=== PATIENT | male | born 1935 | race Caucasian/White ===

== ENCOUNTER 2019-07-19 11:49 | Inpatient (IN) | payer MEDICARE, BC, OTHER ==
[2019-07-19 13:17] LABS: #Eosinphils 0.1 thou/uL (0.0-0.7); #Lymphocytes 0.8 thou/uL (1.20-3.40); #Monocytes 0.7 thou/uL (0.11-0.59); #Neutrophils 3.4 thou/uL (1.40-6.50); %Basophils 0.5 % (0.0-1.0); %Eosinophils 2.6 % (0.0-10.0); %Lymphocytes 16.7 % (21.0-51.0); %Monocytes 13.4 % (0.0-10.0); %Neutrophils 66.8 % (42.0-75.0); Hemoglobin 12.2 g/dL (14.0-18.0); Mean Corpuscular HGB CONC 30.2 g/dL (32.0-36.0); Mean Corpuscular Hemoglobin 33.6 pg (27.0-31.0); Platelet Count 102 thou/uL (130-400); RBC Distribution Width 16.5 % (11.5-14.5); Red Blood Cell (RBC) Count 3.64 mill/uL (4.70-6.10)
[2019-07-19 13:37] LABS: ALT (SGPT) 29 U/L (8-55); AST (SGOT) 27 U/L (5-34); Albumin 3.2 g/dL (3.4-4.8); Alkaline Phosphatase 162 U/L (40-110); Anion Gap 16 mmol/L (10-20); BUN (Urea Nitrogen) 37 mg/dL (8.4-25.7); Bilirubin, Total 1.2 mg/dL (0.2-1.2); CK (CPK) 36 U/L (30-200); Calc. Creatinine Clearance 0 mL/min (70-130); Calcium 8.6 mg/dL (7.8-10.44); Carbon Dioxide 24 mmol/L (23-31); Chloride 106 mmol/L (98-107); Estimated GFR-MDRD 38; Globulin 2.7 g/dL (2.4-3.5); Glucose 98 mg/dL (83-110); Potassium 4.7 mmol/L (3.5-5.1); Protein, Total 5.9 g/dL (5.8-8.1); Sodium 141 mmol/L (136-145)
[2019-07-19 13:41] LABS: MDiff Complete? YES; Macrocytosis SLIGHT = 6-15 cells (100X) (0-5/hpf); Platelet Morphology Comment Appears Decreased
[2019-07-19 13:50] LABS: CKMB 2.2 ng/mL (0-6.6)
[2019-07-19] MEDS ORDERED: Nitroglycerin 2% Ointment 1 INCH/1 GM Packet ONE (14:21)
[2019-07-19] MEDS ORDERED: Furosemide 40 MG/4 ML VIAL ONE (14:21)
[2019-07-19] MEDS ORDERED: Aspirin Chewable 81 MG TAB ONE (14:21)
--- NOTE | 2019-07-19 15:10 | RAD ---
CHEST 1 VIEW: HISTORY: Low oxygen saturation. COMPARISON: Radiograph 06/24/2019. FINDINGS: Heart size is markedly enlarged. Moderate right and small left effusion. Moderate pulmonary edema. Multiple midline sternotomy wires. AICD/pacer is similar. Abnormal fullness of the right infrahilar soft tissues. IMPRESSION: 1. Mild decompensating congestive heart failure. 2. Mild fullness of the right infrahilar soft tissues. Nonemergent followup CT of the chest after d iuresis recommended. POS: HOME
--- NOTE | 2019-07-19 16:21 | HP ---
PRIMARY CARE PHYSICIAN: [facility]. REASON FOR ADMISSION: Sent from group home for hypoxic respiratory failure. HISTORY OF PRESENT ILLNESS: An 84-year-old male, who lives at group home, he has underlying CHF as well as seizure disorder, who presented from group home for hypoxic respiratory failure. The patient is a poor historian. The patient does not have any more clear about his diagnosis. As per report, the patient was found with oxygen saturation 60 to 70 on room air this morning and subsequently, paramedics was called. When paramedics reached at group home, he was saturating 80% on room air. The patient was started on oxygen and subsequently, his oxygen saturation improved to 91%. The patient was having increasing bilateral lower extremity edema. He did not have any chest pain or fever. The patient has significant physical deconditioning. Routine blood tests showed macrocytosis and thrombocytopenia as well as CKD stage 3 with creatinine 1.74, and troponin was indeterminate range with 0.031 and BNP was significantly elevated with more than 10,000. In the emergency room, the patient had a chest x-ray, which was also consistent with congestive heart failure, and the patient was given Lasix 80 mg IV push, nitroglycerin patch, and aspirin. As the patient was having hypoxia, respiratory failure, and the patient is from group home, and that is why from emergency room, COVID-19 test was sent. REVIEW OF SYSTEMS: All review of systems tried to review with the patient, but not reliable due to level of cognitive status. PAST MEDICAL HISTORY: Congestive heart failure, seizure disorder, coronary artery disease, and dyslipidemia. PAST SURGICAL HISTORY: CABG and AICD/pacemaker placement. PAST PSYCHIATRIC HISTORY: Reviewed and negative. SOCIAL HISTORY: The patient is from group home. No history of tobacco, alcohol, or illicit drug abuse. FAMILY HISTORY: Unable to obtain from the patient and not reliable due to cognitive status. ALLERGIES: NO KNOWN DRUG ALLERGIES. CURRENT HOME MEDICATIONS: The patient is on: 1. Amiodarone 200 mg daily. 2. Aspirin 81 mg daily. 3. Lasix 80 mg daily. 4. Potassium chloride 20 mEq p.o. daily. 5. Coreg 3.125 mg twice daily. 6. Keppra 500 mg twice daily. 7. Lipitor 40 mg p.o. at bedtime. EMERGENCY ROOM COURSE: The patient has received Lasix 80 mg, nitroglycerin patch, and aspirin 324 mg. PHYSICAL EXAMINATION: VITAL SIGNS: On arrival, blood pressure 156/93, pulse 61, respiratory rate 22, temperature 97.4, and saturations 91% on 3 L oxygen. Weight 90.7 kg. GENERAL: The patient is currently awake, arousable, follows simple commands, confused. No obvious acute distress. HEENT: Head; normocephalic and atraumatic. NECK: Supple. Elevated JVD noted. No thyromegaly. No carotid bruit. LUNGS: Air entry reduced at bases, bilateral basal rales noted, no end-expiratory wheezing. No accessory muscles of respiration in use. CARDIAC: S1 and S2 appear regular. Soft systolic murmur noted. No gallop. No rub. ABDOMEN: Soft, bowel sounds present, nontender, and nondistended. No organomegaly. No mass. EXTREMITIES: Upper extremity; edema noted. Bilateral upper extremity, +2. Lower extremity; edema noted, bilateral lower extremity +2. SKIN: The patient does have multiple areas of ecchymosis. NEUROLOGIC: Awake and alert. Moving all 4 limbs. No focal neurological deficit noted. PSYCHIATRIC: Awake and alert. Flat affect. SIGNIFICANT LABORATORY DATA: EKG showing pacemaker rhythm, QTc interval 530. Chest x-ray based on my review, findings suggestive of congestive heart failure, mild fullness of right infrahilar soft tissue. AICD in place. CBC; WBC 5.0, hemoglobin 12.2, MCV 111, and platelets 102. BMP; sodium 141, potassium 4.7, chloride 106, carbon dioxide 24, BUN 37, creatinine 1.74, glucose 98, and calcium 8.6. LFT; AST 27, ALT 29, alkaline phosphatase 162, and albumin 3.2. CK 36 and CK-MB 2.2. Troponin I of 0.031. BNP 10,308. ASSESSMENT: 1. Acute respiratory failure with hypoxia, likely due to congestive heart failure exacerbation. 2. Nlglt-[id number]-zojahky systolic congestive heart failure exacerbation. 3. Anasarca due to congestive heart failure exacerbation. 4. Macrocytic anemia and thrombocytopenia. 5. Chronic kidney disease, stage 3. 6. Demand ischemia of myocardium. 7. Dyslipidemia. 8. Seizure disorder. 9. Coronary artery disease with history of coronary artery bypass grafting. PLAN: 1. The patient will be admitted to telemetry floor. Oxygen will be continued to maintain saturations above 92%. We will continue the Lasix 40 mg IV b.i.d., fluid restriction 1200 mL per day. We will start Coreg 3.125 mg twice daily and lisinopril 2.5 mg p.o. daily. 2. Coronary artery disease with ischemic cardiomyopathy, we will continue the aspirin 81 mg p.o. daily, amiodarone 200 mg p.o. daily, and Lipitor 40 mg p.o. at bedtime. 3. Seizure disorder. We will continue Keppra 500 mg p.o. b.i.d. 4. Macrocytic anemia and thrombocytopenia. We will check folate and B12 level tomorrow morning. We will also check TSH tomorrow morning and continue folic acid and vitamin B12 therapy. 5. Rule out COVID-19 infection. The patient is at risk for COVID-19 infection and that is why, we will keep him in hospital and put him on contact precautions. 6. Demand ischemia of myocardium due to congestive heart failure exacerbation and hypoxia. Once COVID-19 test comes back negative, then we will discontinue isolation protocol. 7. CKD stage 3. We will monitor renal function and input and output chart and will replace electrolytes accordingly. 8. Physical deconditioning. The patient will need PT and OT when stable. 9. Deep venous thrombosis prophylaxis, SCD, we will avoid Lovenox because of low platelet count. 10. Gastrointestinal prophylaxis, Pepcid 20 mg p.o. daily. CODE STATUS: The patient will be kept as a full code. The patient does not have any obvious surrogate decision maker bedside at this point. DISPOSITION PLAN: Based on clinical course, the patient will go back to group home upon stabilization. Job ID: [id number]
[2019-07-19] MEDS ORDERED: Nitroglycerin 0.4 MG TAB (25 Tab Bottle) SL PRN (17:24)
[2019-07-19] MEDS ORDERED: Senokot S 8.6-50 MG TAB PO PRN (17:24)
[2019-07-19] MEDS ORDERED: Guaifenesin DM 100-10/5 ML UDCUP PO PRN (17:24)
[2019-07-19] MEDS ORDERED: Artificial Tears 18 DROP/0.9 ML EA EYE PRN (17:24)
[2019-07-19] MEDS ORDERED: hydrALAZINE 20 MG/ML VIAL SLOW IVP PRN (17:24)
[2019-07-19] MEDS ORDERED: Loperamide HCl 2 MG CAP PO PRN (17:24)
[2019-07-19] MEDS ORDERED: Calcium Carbonate 500 MG ChewTAB PO PRN (17:24)
[2019-07-19] MEDS ORDERED: Loratadine 10 MG TAB PO PRN (17:24)
[2019-07-19] MEDS ORDERED: Ondansetron PF 4 MG/2 ML Vial IVP PRN (17:24)
[2019-07-19] MEDS ORDERED: Sodium Chloride 0.65% Nasal 44 ML BOT EA NARE PRN (17:24)
[2019-07-19] MEDS ORDERED: Ondansetron ODT 4 MG TAB PO PRN (17:24)
[2019-07-19] MEDS ORDERED: Albuterol Sulfate 2.5 mg/3 ml Neb NEB PRN (17:24)
[2019-07-19] MEDS ORDERED: Bisacodyl 10 MG SUPP PR PRN (17:24)
[2019-07-19] MEDS ORDERED: Diabetic Tussin 200 MG/10 ML UDCUP PO PRN (17:24)
[2019-07-19] MEDS ORDERED: Cepastat Lozenges 1 LOZ PO PRN (17:24)
[2019-07-19] MEDS ORDERED: Albuterol 200 PUFF (6.7GM INHALER) INH PRN (17:46)
[2019-07-19 19:19] LABS: Troponin I 0.037 ng/mL (< 0.028)
[2019-07-19] MEDS: Atorvastatin Calcium 40 MG TAB PO SCH (20:00)
[2019-07-19] MEDS: Carvedilol 3.125 MG TAB PO SCH (20:01)
[2019-07-19] MEDS: levETIRAcetam 500 MG TAB PO SCH (20:01)
[2019-07-19 21:41] LABS: Troponin I 0.043 ng/mL (< 0.028)
[2019-07-20 05:38] LABS: ALT (SGPT) 25 U/L (8-55); AST (SGOT) 24 U/L (5-34); Albumin 2.8 g/dL (3.4-4.8); Alkaline Phosphatase 141 U/L (40-110); Anion Gap 13 mmol/L (10-20); BUN (Urea Nitrogen) 37 mg/dL (8.4-25.7); Calc. Creatinine Clearance 37 mL/min (70-130); Carbon Dioxide 26 mmol/L (23-31); Chloride 106 mmol/L (98-107); Estimated GFR-MDRD 39; Globulin 2.6 g/dL (2.4-3.5); Glucose 92 mg/dL (83-110); Magnesium 2.1 mg/dL (1.6-2.6); Potassium 4.1 mmol/L (3.5-5.1); Protein, Total 5.4 g/dL (5.8-8.1); Sodium 141 mmol/L (136-145); Uric Acid 8.1 mg/dL (3.5-7.2)
[2019-07-20 05:42] LABS: #Eosinphils 0.2 thou/uL (0.0-0.7); #Lymphocytes 0.6 thou/uL (1.20-3.40); #Monocytes 0.6 thou/uL (0.11-0.59); #Neutrophils 3.1 thou/uL (1.40-6.50); %Eosinophils 4.9 % (0.0-10.0); %Lymphocytes 13.5 % (21.0-51.0); %Monocytes 13.7 % (0.0-10.0); Hemoglobin 10.9 g/dL (14.0-18.0); MDiff Complete? YES; Macrocytosis SLIGHT = 6-15 cells (100X) (0-5/hpf); Mean Corpuscular HGB CONC 31.3 g/dL (32.0-36.0); Mean Corpuscular Hemoglobin 34.3 pg (27.0-31.0); Mean Platelet Volume 9.8 fL (7.4-10.4); Platelet Count 93 thou/uL (130-400); Platelet Morphology Comment Appears Decreased; RBC Distribution Width 16.6 % (11.5-14.5); Red Blood Cell (RBC) Count 3.16 mill/uL (4.70-6.10); White Blood Cell (WBC) Count 4.7 thou/uL (4.8-10.8)
[2019-07-20] MEDS: Furosemide 40 MG/4 ML VIAL SLOW IVP SCH ×2 (05:53→14:28)
[2019-07-20 06:02] LABS: Thyroid Stimulating Hormone 10.6065 uIU/mL (0.35-4.94)
[2019-07-20] MEDS: Amiodarone 200 MG TAB PO SCH (09:03)
[2019-07-20] MEDS: levETIRAcetam 500 MG TAB PO SCH ×2 (09:03→20:13)
[2019-07-20] MEDS: Aspirin Chewable 81 MG TAB PO SCH (09:04)
[2019-07-20] MEDS: Lisinopril 2.5 MG TAB PO SCH (09:04)
[2019-07-20] MEDS: Famotidine 20 MG TAB PO SCH (09:04)
[2019-07-20] MEDS: Folic Acid 1 MG TAB PO SCH (09:04)
[2019-07-20] MEDS: Carvedilol 3.125 MG TAB PO SCH ×2 (09:04→20:13)
[2019-07-20] MEDS: Cyanocobalamin (Vitamin B-12) 1,000 MCG TAB PO SCH (09:04)
[2019-07-20] MEDS: Acetaminophen 325 MG TAB PO PRN (10:21)
[2019-07-20 10:56] LABS: SARS-CoV-2 MS2 Positive; SARS-CoV-2 N Gene Negative; SARS-CoV-2 S Gene Negative; SARS-CoV-2 orf1ab Negative
[2019-07-20] MEDS: HYDROcodone/Acetaminophen 5/325 mg Tablet PO PRN (11:59)
--- NOTE | 2019-07-20 13:32 | CON ---
DATE OF CONSULTATION: 07/20/2019 INDICATION FOR CONSULTATION: An 84-year-old patient, sent from care home or either at the home with home health care due to hypoxic respiratory failure. We have a very little information of this patient. I have called several different facilities and they are unaware of the patient. Finally, found one facility [facility], who said the patient had been discharged from their facility on Thursday and maybe had been residing at home with a electronics production supervisor, but anyway he apparently is a very poor historian, cannot give any significant information. He did tell me that he has had a valve replacement but more likely he had CABG.. He did not know about any coronary artery disease. Also, on chest x-ray, it is obvious he has had a biventricular AICD placed and it is obvious by evaluation, this is recently implanted, probably within the last 1 to 2 weeks. He also has some enlarged heart with some congestion and obviously, he has a history of congestive heart failure. His BNP was significantly elevated over 10,000, and we were asked to see this patient. He also had some slightly elevated or indeterminate cardiac enzymes, which most likely are due to his stage 2 or 3 renal disease with a creatinine of 1.7 and a BUN of 37. He denied any chest pain.He denied any shortness of breath. O2 saturations at this time are 96% to 98%. He is on 3 L of oxygen by nasal cannula. Apparently, when he was brought to the emergency room, reportedly the O2 saturation was 60% to 70% on room air. Paramedics had been called. He apparently was saturating about 80% at that time. He was started on oxygen. The oxygen level improved to 91%. He also had lower extremity edema. He said it had been ongoing for several weeks. He did not have any other symptoms, however. He also did have some decubitus ulcers apparently on examination on his heel as well as on his lower sacral area. At this time, we will need to try to find an echocardiogram for more information of this patient. Otherwise, he does not give any significant history, it is certainly unreliable. He did tell me that he had had some type of scan on his brain. They thought perhaps he had had some injury after a fall. However, he looks like according to the records from here , he may have had a PICC line placed about a month ago in June, and I suspect that was due to episode of sepsis. There is no indication that he has a PICC line at this time. PAST MEDICAL HISTORY: From what I can determine from the records and from evaluation of the films, this patient does have a history of congestive heart failure. He has had an AICD placed. I suspect the ejection fraction is severely compromised, due to the looking at the size of the heart and history of having a biventricular device. He has a history of seizure disorders. There is a history of coronary artery disease, but the patient denies. He says he has had valve replacement. He also has dyslipidemia and history of congestive heart failure. Uncertain as to whether or not he has had bypass surgery and a valve or just bypass surgery. We will see by echo if we can see a valve. REVIEW OF SYSTEMS: As far as his review of systems, the patient is completely unreliable and is not able to give any information as far as I was concerned. SOCIAL HISTORY: Apparently, he was recently in a rehab center and then went to perhaps either a care home or home with home health. There is no history of any illicit drug use. He apparently only has one family member who is alive and a niece who lives in [place], who has been trying to come back and forth and take care of him. It sounds as if he had been placed at home with a electronics production supervisor or either in a care home situation. Otherwise, there is no other family and family history is noncontributory at this time. ALLERGIES: NONE. MEDICATIONS: Included: 1. Keppra. 2. Lipitor 40 mg a day. 3. Potassium. 4. Coreg 3.125 mg b.i.d. 5. Lasix 40 mg b.i.d. 6. Enteric-coated aspirin 81 mg a day. 7. He also was on Tylenol p.r.n. 8. I believe, he was also taking Amiodarone 200 mg a day. At this time, he has been placed on IV Lasix. His I's and O's, so far he is negative 150 mL. He also was ruled out for COVID-19. PHYSICAL EXAMINATION: GENERAL: Reveals an elderly, certainly ill-appearing gentleman. He is in no acute distress at this time. He offers a very little information. Certainly, seems to be confused about his medical problems. VITAL SIGNS: His blood pressure was 142/83, heart rate was 60 and regular, respiratory rate 16, O2 saturations about 98%. He is pacing 100% of the time, both A and V. Temperature 97.3. HEENT: Showed the head to be normocephalic and atraumatic. Carotid pulses are present. I did not hear any significant bruits. He does have an elevated JVD, but he is actually also lying down. He was not sitting up in the bed, but does have elevated JVD while lying. CHEST: Shows mild decreased breath sounds at the bases, otherwise I do not hear any significant rhonchi or wheezing. He has mild bibasilar rales, more so on the right than the left, which is compatible with what was noted on the chest x-ray. CARDIOVASCULAR: He has normal S1 and S2. The S2 appears to be slightly split. I do not hear any significant heaves or thrills. He has a very soft systolic murmur noted at the apex. ABDOMEN: Soft and nontender. Positive bowel sounds are present. I cannot palpate any masses or organomegaly. EXTREMITIES: He has 2 to 3+ lower extremity edema. He also has upper extremity edema. He has a sacral ulcer, decubitus noted. He also has ulceration on the heel, I believe, in his left foot. Pedal pulses are not palpable. Popliteal pulses are present. PSYCHOSOCIAL: The patient is confused about his history and confused about his doctors and where he had this procedures performed and does not give very much history. LABORATORY DATA: Shows a WBC of 4.7; hemoglobin is 10.9, earlier was 12.2. platelet count 93,000. His sodium was 141, potassium 4.1, BUN 37, creatinine 1.71, and blood sugar was 92. Troponin I was 0.031 and increased to 0.37 and then the third set was 0.043, all which are indeterminate. His BNP is 10,308. TSH was 10.6, and apparently he is hypothyroid, did not see any indication that the patient has been on thyroid medicines in the past. This may be due to his amiodarone. I am uncertain how long he has been on this medication.Chest x-ray shows cardiomegaly with congestive heart failure evidence and also some pulmonary edema with bilateral pleural effusions, right being more than the left. EKG shows AV pacing with no other acute changes. IMPRESSION: 1. Elderly gentleman with congestive heart failure exacerbation. Echocardiogram is still pending. He obviously most likely has a severe decrease in left ventricular systolic function of uncertain etiology at this time. He has undergone a BiV- ICD and appears to be pacing from the device. We will try to determine what kind of device he has and perhaps interrogate this to see whether or not he is actually having any BiV pacing, whether or not he is just AV pacing at this time. Certainly, he has a cardiomyopathy and he may get benefit if he is BiV paced. On evaluation of the EKG, I cannot determine if there were 2 ventricular spikes, it appears to be just 1 ventricular spike. We will try to determine what kind of device this gentleman has. 2. History of either bypass surgery, coronary artery disease, or perhaps a valve replacement, or both, uncertain etiologies. We will try to obtain the records and see what we can ascertain as far as his past medical history. At this time, he does not complain of any chest pain and obviously, he is not a candidate for further cardiac evaluation at this time. He appears to be relatively stable overall. O2 saturation improved. We would just need to diurese him with his congestive heart failure and try to determine what the etiology of the congestive heart failure worsening is. 3. History of seizure disorders. He has been placed on Keppra. He would continue this medication. This will be dealt with by the Primary Care Service. 4. What appears to be chronic kidney disease. We do not know whether this is a new finding or not. Again, old records may shed some light on this. He may need to be seen by the ice cream dispenser. If his ejection fraction is severely compromised, he may need to be on inotropic support in order to aid in the diuresis, especially with a creatinine of 1.7 and the renal insufficiency. 5. History of hypercholesterolemia. He has been on Lipitor in the past. We would continue this medication. 6. Possible history of atrial fibrillation. We will need to again evaluate the records. He is on amiodarone. If there is no any indication that the patient has had any atrial fibrillation, I am not sure why he is on amiodarone, and if he continues to have any lung problems, we may need to stop this medicine, but does not appear that he has amiodarone lung toxicity at this time. Will also need to consider if the amiodarone has caused some degree of hypothyroidism. 7. Also please note, apparently back in June of this year, he may have had some type of infection. We will be happy to continue to follow the patient with you. Job ID: [id number] MTDD
--- NOTE | 2019-07-20 16:53 | PDOC.HOSPP ---
- Subjective Subjective: Seen and examined on the medical unit with telemetry. Patient is a poor historian and cannot give me much accurate history. Patient knows self, no see his and Jeremiah Perez, and knows the year. Unfortunately he is not able to give any consistent past medical history. I ask the patient when he had his pacemaker placed, he tells me 20 years ago, even though there is a freshly healing incision of no more than two weeks old from recent AICD. Patient has not been evaluated in our system by cardiology in the past, we do not have any old echocardiogram reports. Patient remains on supplemental oxygen to maintain his O2 saturation. He is on IV Lasix. We will request cardiology input for acute CHF exacerbation and management of cardiomyopathy. - Objective Vital Signs & Weight: Vital Signs (12 hours) Temp Pulse Pulse Resp BP BP Pulse Ox 07/20/19 16:47 97.3 F L 98 20 140/76 07/20/19 15:49 97.3 F L 98 20 140/76 07/20/19 14:00 60 135/79 07/20/19 12:00 97.4 F L 60 16 128/77 07/20/19 09:04 60 07/20/19 08:00 97.3 F L 61 16 142/83 H 96 07/20/19 05:59 97.1 F L 60 138/80 98 Weight Admit Weight 175 lb 4.28 oz Weight 169 lb 5.04 oz I&O: 07/19/19 07/20/19 07/21/19 06:59 06:59 06:59 Output Total 150 Balance -150 Result Diagrams: 07/20/19 05:01 07/20/19 05:01 Radiology Reviewed by me: Yes Hospitalist ROS - Review of Systems All other systems reviewed; all pertinent +/- noted in HPI/Subj - Medication Medications: Active Medications Generic Name Dose Route Start Last Admin Trade Name Freq PRN Reason Stop Dose Admin Acetaminophen 650 mg 07/19/19 17:24 07/20/19 10:21 Tylenol PO 650 mg Q4H PRN Administration Headache/Fever/Mild Pain (1-3) Hydrocodone Bitart/Acetaminophen 1 tab 07/20/19 11:05 07/20/19 11:59 [place] 5/325 PO 1 tab Q4H PRN Administration Moderate to Severe Pain (6-10) Amiodarone HCl 200 mg 07/20/19 09:00 07/20/19 09:03 Cordarone PO 200 mg DAILY LISA Administration Aspirin 81 mg 07/20/19 09:00 07/20/19 09:04 Aspirin Chewable PO 81 mg DAILY LISA Administration Atorvastatin Calcium 40 mg 07/19/19 21:00 07/19/19 20:00 Lipitor PO 40 mg HS LISA Administration Carvedilol 3.125 mg 07/19/19 21:00 07/20/19 09:04 Coreg PO 3.125 mg BID LISA Administration Cyanocobalamin 1,000 mcg 07/20/19 09:00 07/20/19 09:04 Vitamin B-12 PO 1,000 mcg DAILY LISA Administration Famotidine 20 mg 07/20/19 09:00 07/20/19 09:04 Pepcid PO 20 mg DAILY LISA Administration Folic Acid 1 mg 07/20/19 09:00 07/20/19 09:04 Folvite PO 1 mg DAILY LISA Administration Furosemide 40 mg 07/20/19 06:00 07/20/19 14:28 Lasix SLOW IVP 40 mg 0600,1400 LISA Administration Levetiracetam 500 mg 07/19/19 21:00 07/20/19 09:03 Keppra PO 500 mg BID LISA Administration Lisinopril 2.5 mg 07/20/19 09:00 07/20/19 09:04 Zestril PO 2.5 mg DAILY LISA Administration - Exam General Appearance: NAD, awake alert Eye: PERRL, anicteric sclera ENT: normocephalic atraumatic, moist mucosa Neck: supple, symmetric Heart: no murmur, no gallops, no rubs Respiratory: no wheezes, no ronchi, normal chest expansion, no tachypnea, rales Gastrointestinal: soft, non-tender, no guarding, no rigidity Extremities - other findings: 4+ LE edema Skin: no lesions, no rashes Neurological: cranial nerve grossly intact, no focal deficits Musculoskeletal: generalized weakness Psychiatric: normal affect, normal behavior, oriented to person, oriented to place Psychiatric - other findings: poor historian with medical history Hosp A/P (1) CHF (congestive heart failure) Code(s): I50.9 - HEART FAILURE, UNSPECIFIED Status: Acute (2) Shortness of breath Code(s): R06.02 - SHORTNESS OF BREATH Status: Acute (3) Hypoxia Code(s): R09.02 - HYPOXEMIA Status: Acute (4) Hx of CABG Status: Acute (5) AICD (automatic cardioverter/defibrillator) present Code(s): Z95.810 - PRESENCE OF AUTOMATIC (IMPLANTABLE) CARDIAC DEFIBRILLATOR Status: Acute (6) HTN (hypertension) Code(s): I10 - ESSENTIAL (PRIMARY) HYPERTENSION Status: Acute (7) HLD (hyperlipidemia) Code(s): E78.5 - HYPERLIPIDEMIA, UNSPECIFIED Status: Acute (8) Seizure Code(s): R56.9 - UNSPECIFIED CONVULSIONS Status: Acute (9) Sacral decubitus ulcer Code(s): L89.159 - PRESSURE ULCER OF SACRAL REGION, UNSPECIFIED STAGE Status: Acute - Plan Plan: medical unit with telemetry cardiology consultation, recommendations appreciated echocardiogram cardiomyopathy regimen IV Lasix fluid restrictions recent AICD, though patient has no recollection of when this was placed or any details may need interrogation of AICD sacral decubitus ulcer, present on admission wound care consultation covid 19 was ordered by the emergency department, afebrile, no signs of infection will discontinue isolation precautions when covid returns negative blood pressure control blood sugar control GI prophylaxis DVT prophylaxis
[2019-07-20] MEDS: Atorvastatin Calcium 40 MG TAB PO SCH (20:13)
[2019-07-21] MEDS: Furosemide 40 MG/4 ML VIAL SLOW IVP SCH ×2 (06:20→13:38)
[2019-07-21] MEDS: Lisinopril 2.5 MG TAB PO SCH (08:09)
[2019-07-21] MEDS: Famotidine 20 MG TAB PO SCH (08:10)
[2019-07-21] MEDS: Cyanocobalamin (Vitamin B-12) 1,000 MCG TAB PO SCH (08:10)
[2019-07-21] MEDS: Carvedilol 3.125 MG TAB PO SCH ×2 (08:10→20:39)
[2019-07-21] MEDS: Aspirin Chewable 81 MG TAB PO SCH (08:10)
[2019-07-21] MEDS: Amiodarone 200 MG TAB PO SCH (08:10)
[2019-07-21] MEDS: levETIRAcetam 500 MG TAB PO SCH ×2 (08:10→20:39)
[2019-07-21] MEDS: Folic Acid 1 MG TAB PO SCH (08:10)
--- NOTE | 2019-07-21 11:08 | PDOC.CPN ---
- Subjective Date: 07/21/19 Time: 11:17 Interval history: The pt seen and examined. No overnight events. No cardiac complaints. - Objective Allergies/Adverse Reactions: Allergies Allergy/AdvReac Type Severity Reaction Status Date / Time No Known Allergies Allergy Verified 07/19/19 20:23 Visit Medications: Current Medications Acetaminophen (Tylenol) 650 mg PO Q4H PRN PRN Reason: Headache/Fever/Mild Pain (1-3) Last Admin: 07/20/19 10:21 Dose: 650 mg Hydrocodone Bitart/Acetaminophen ([place] 5/325) 1 tab PO Q4H PRN PRN Reason: Moderate to Severe Pain (6-10) Last Admin: 07/20/19 11:59 Dose: 1 tab Albuterol Sulfate (Proventil Hfa) 2 puff INH Q6H PRN PRN Reason: Wheezing Amiodarone HCl (Cordarone) 200 mg PO DAILY [facility] Last Admin: 07/21/19 08:10 Dose: 200 mg Artificial Tears (Tears Naturale) 2 drop EA EYE PRN PRN PRN Reason: Dry Eyes Aspirin (Aspirin Chewable) 81 mg PO DAILY [facility] Last Admin: 07/21/19 08:10 Dose: 81 mg Atorvastatin Calcium (Lipitor) 40 mg PO HS [facility] Last Admin: 07/20/19 20:13 Dose: 40 mg Bisacodyl (Dulcolax) 10 mg [place] DAILYPRN PRN PRN Reason: Constipation Calcium Carbonate (Tums) 1,000 mg PO Q4H PRN PRN Reason: Heartburn or Indigestion Carvedilol (Coreg) 3.125 mg PO BID [facility] Last Admin: 07/21/19 08:10 Dose: 3.125 mg Cyanocobalamin (Vitamin B-12) 1,000 mcg PO DAILY [facility] Last Admin: 07/21/19 08:10 Dose: 1,000 mcg Famotidine (Pepcid) 20 mg PO DAILY [facility] Last Admin: 07/21/19 08:10 Dose: 20 mg Folic Acid (Folvite) 1 mg PO DAILY [facility] Last Admin: 07/21/19 08:10 Dose: 1 mg Furosemide (Lasix) 40 mg SLOW IVP 0600,1400 [facility] Last Admin: 07/21/19 06:20 Dose: 40 mg Guaifenesin (Robitussin Sf) 200 mg PO Q4H PRN PRN Reason: Cough Guaifenesin/Dextromethorphan (Robitussin Dm) 15 ml PO Q4H PRN PRN Reason: Cough Hydralazine HCl (Apresoline) 10 mg SLOW IVP Q4H PRN PRN Reason: SBP > 180 and HR < 70 Levetiracetam (Keppra) 500 mg PO BID [facility] Last Admin: 07/21/19 08:10 Dose: 500 mg Lisinopril (Zestril) 2.5 mg PO DAILY [facility] Last Admin: 07/21/19 08:09 Dose: 2.5 mg Loperamide HCl (Imodium) 2 mg PO PRN PRN PRN Reason: Diarrhea/Loose Stools Loratadine (Claritin) 10 mg PO DAILYPRN PRN PRN Reason: Sinus Symptoms Nitroglycerin (Nitrostat) 0.4 mg SL Q5MIN PRN PRN Reason: Chest Pain Ondansetron HCl (Zofran Odt) 4 mg PO Q6H PRN PRN Reason: Nausea/Vomiting Ondansetron HCl (Zofran) 4 mg IVP Q6H PRN PRN Reason: Nausea/Vomiting Senna/Docusate Sodium (Senokot S) 2 tab PO BIDPRN PRN PRN Reason: Constipation Sodium Chloride ([place] Nasal [place] 0.65%) 0 ml EA NARE QIDPRN PRN PRN Reason: Nasal Congestion Throat Lozenges (Cepastat Lozenges) 1 wanda PO Q2H PRN PRN Reason: Sore Throat Vital Signs & Weight: Vital Signs Temp Pulse Resp BP BP BP Pulse Ox 07/21/19 09:14 108/59 L 123/76 07/21/19 07:28 97.9 F 60 10 L 137/74 100 07/21/19 04:01 97 07/21/19 03:59 97.5 F L 60 14 137/73 83 L 07/20/19 23:43 97.5 F L 60 18 142/83 H 100 Admit Weight 175 lb 4.28 oz Weight 172 lb 2.896 oz - Physical Exam General: other (confused) HEENT: mucus membranes moist Neck: supple neck Cardiac: regular rate and rhythm Lungs: clear to auscultation, decreased breath sounds - Labs Result Diagrams: 07/20/19 05:01 07/20/19 05:01 Troponin/CKMB CK-MB (CK-2) 2.2 ng/mL (0-6.6) 07/19/19 12:55 Troponin I 0.043 ng/mL (< 0.028) H 07/19/19 21:10 - Telemetry Sinus rhythms and dysrhythmias: other (AV paced) - Assessment/Plan Assessment/Plan: 1. Acute on chronic systolic HF exc with EF 15-20% in 07/2019 - The pt stated he does not have any SOB this AM; 2+ pitting BLE edema; 4LNC; On Coreg, Lisinopril, and Lasix 40mg IV BID 2. 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 CAD with hx of CABG - on Coreg, lisinopril, ASA, and lipitor 4. HTN - stable with current meds 5. CKD - unchanged 6. HLD - on Statin 7. Seizure 8. Possible Afib? - on Amiodarone 200mg QD. On ASA 81mg qd for now 2/2 hx of fall and dementia 9. "smoking formation" in [place] - cont. ASA 81mg qd for now due to 2/2 hx of fall and dementia MAR reviewed * Echo on 07/20/2019 with EF 15-0%, "smoke formation" mod-severe LAE, mild-mod MR, and mild AR Pt. seen and eval. by me. He is a little more alert today but confused. He denies SOB or CP. The records from & were reviewed. He has a long history of CMY/CHF. The defibrillator was orinially a dual chamber device which was placed due to CMY and CHBlock. It was later upgraded to a bi-v device after the EF continued to decrease and he was pacing essentially all the time. he was recently in [facility] hospital in apr., for about 10 days with CHF exacerbation. He was sent to assisted living but apparently decompensated. if this is his mental baseline he will probably need to go to [place] for future care. He seems to be diuresing and I would continue the present meds. We could also add spiralactone to his regimine if the renal function allows. osvaldo
[2019-07-21 13:11] LABS: Free T4 (Free Thyroxine) 0.73 ng/dL (0.70-1.48)
--- NOTE | 2019-07-21 13:44 | PDOC.HOSPP ---
- Subjective Encounter Date: 07/21/19 Encounter Time: 08:00 Subjective: no overnight events. This morning, feeling well and has no complaints. Endorses not taking medications. Not aware why he's admitted so educated regarding hypervolemic state. - Objective Vital Signs & Weight: Vital Signs (12 hours) Temp Pulse Resp BP BP BP Pulse Ox 07/21/19 11:19 97.6 F 60 12 124/66 98 07/21/19 09:14 108/59 L 123/76 07/21/19 07:28 97.9 F 60 10 L 137/74 100 07/21/19 04:01 97 07/21/19 03:59 97.5 F L 60 14 137/73 83 L Weight Admit Weight 175 lb 4.28 oz Weight 172 lb 2.896 oz I&O: 07/20/19 07/21/19 07/22/19 06:59 06:59 06:59 Intake Total 700 Output Total 150 150 Balance -150 550 Result Diagrams: 07/20/19 05:01 07/20/19 05:01 Hospitalist ROS - Review of Systems Constitutional: denies: fever, chills, sweats, weakness, malaise, other Respiratory: denies: cough, dry, shortness of breath, hemoptysis, SOB with excertion, pleuritic pain, sputum, wheezing, other Cardiovascular: denies: chest pain, palpitations, orthopnea, paroxysmal noc. dyspnea, edema, light headedness, other Gastrointestinal: denies: nausea, vomiting, abdominal pain, diarrhea, constipation, melena, hematochezia, other - Medication Medications: Active Medications Generic Name Dose Route Start Last Admin Trade Name Freq PRN Reason Stop Dose Admin Acetaminophen 650 mg 07/19/19 17:24 07/20/19 10:21 Tylenol PO 650 mg Q4H PRN Administration Headache/Fever/Mild Pain (1-3) Hydrocodone Bitart/Acetaminophen 1 tab 07/20/19 11:05 07/20/19 11:59 [place] 5/325 PO 1 tab Q4H PRN Administration Moderate to Severe Pain (6-10) Amiodarone HCl 200 mg 07/20/19 09:00 07/21/19 08:10 Cordarone PO 200 mg DAILY LISA Administration Aspirin 81 mg 07/20/19 09:00 07/21/19 08:10 Aspirin Chewable PO 81 mg DAILY [facility] Administration Atorvastatin Calcium 40 mg 07/19/19 21:00 07/20/19 20:13 Lipitor PO 40 mg HS LISA Administration Carvedilol 3.125 mg 07/19/19 21:00 07/21/19 08:10 Coreg PO 3.125 mg BID LISA Administration Cyanocobalamin 1,000 mcg 07/20/19 09:00 07/21/19 08:10 Vitamin B-12 PO 1,000 mcg DAILY [facility] Administration Famotidine 20 mg 07/20/19 09:00 07/21/19 08:10 Pepcid PO 20 mg DAILY [facility] Administration Folic Acid 1 mg 07/20/19 09:00 07/21/19 08:10 Folvite PO 1 mg DAILY [facility] Administration Furosemide 40 mg 07/20/19 06:00 07/21/19 13:38 Lasix SLOW IVP 40 mg 0600,1400 LISA Administration Levetiracetam 500 mg 07/19/19 21:00 07/21/19 08:10 Keppra PO 500 mg BID [facility] Administration Lisinopril 2.5 mg 07/20/19 09:00 07/21/19 08:09 Zestril PO 2.5 mg DAILY [facility] Administration - Exam General Appearance: NAD, awake alert Neck: no JVD Heart: RRR, no murmur, no gallops, no rubs Respiratory: no wheezes, no ronchi Respiratory - other findings: bilateral inspiratory rales midfiled and lower Gastrointestinal: soft, non-tender, non-distended, normal bowel sounds Extremities: 2+ LE edema Extremities - other findings: to knee level Psychiatric: normal affect, normal behavior, A&O x 3 Hosp A/P - Plan (1) decompensated CHFrEF (congestive heart failure) Code(s): I50.9 - HEART FAILURE, UNSPECIFIED Status: Acute (2) Shortness of breath Code(s): R06.02 - SHORTNESS OF BREATH Status: Acute (3) Hypoxia Code(s): R09.02 - HYPOXEMIA Status: Acute (4) Hx of CABG Status: Acute (5) AICD (automatic cardioverter/defibrillator) present Code(s): Z95.810 - PRESENCE OF AUTOMATIC (IMPLANTABLE) CARDIAC DEFIBRILLATOR Status: Acute (6) HTN (hypertension) Code(s): I10 - ESSENTIAL (PRIMARY) HYPERTENSION Status : Acute (7) HLD (hyperlipidemia) Code(s): E78.5 - HYPERLIPIDEMIA, UNSPECIFIED Status: Acute (8) Seizure Code(s): R56.9 - UNSPECIFIED CONVULSIONS Status: Acute (9) Sacral decubitus ulcer Code(s): L89.159 - PRESSURE ULCER OF SACRAL REGION, UNSPECIFIED STAGE Status: Acute patient endorses nonadherence to medications Feeling and breathing better today, requires strick I/O, continue to diurese; BP within goal COVID -ve Cardiology onboard
[2019-07-21] MEDS: Atorvastatin Calcium 40 MG TAB PO SCH (20:39)
[2019-07-22 05:27] LABS: Anion Gap 12 mmol/L (10-20); BUN (Urea Nitrogen) 37 mg/dL (8.4-25.7); Calc. Creatinine Clearance 39 mL/min (70-130); Carbon Dioxide 30 mmol/L (23-31); Chloride 103 mmol/L (98-107); Estimated GFR-MDRD 41; Glucose 100 mg/dL (83-110); Magnesium 2.2 mg/dL (1.6-2.6); Potassium 3.4 mmol/L (3.5-5.1); Sodium 142 mmol/L (136-145)
[2019-07-22] MEDS: Furosemide 40 MG/4 ML VIAL SLOW IVP SCH ×2 (06:34→14:11)
[2019-07-22] MEDS: levETIRAcetam 500 MG TAB PO SCH ×2 (09:14→21:50)
[2019-07-22] MEDS: Lisinopril 2.5 MG TAB PO SCH (09:14)
[2019-07-22] MEDS: Famotidine 20 MG TAB PO SCH (09:15)
[2019-07-22] MEDS: Cyanocobalamin (Vitamin B-12) 1,000 MCG TAB PO SCH (09:15)
[2019-07-22] MEDS: Aspirin Chewable 81 MG TAB PO SCH (09:15)
[2019-07-22] MEDS: Amiodarone 200 MG TAB PO SCH (09:15)
[2019-07-22] MEDS: Carvedilol 3.125 MG TAB PO SCH ×2 (09:15→21:51)
[2019-07-22] MEDS: Folic Acid 1 MG TAB PO SCH (09:15)
[2019-07-22] MEDS: Potassium Chloride 20 MEQ TAB PO SCH ×2 (11:40→14:11)
--- NOTE | 2019-07-22 12:43 | PDOC.CPN ---
- Subjective Date: 07/22/19 Time: 08:30 Interval history: The pt seen and examined. No overnight events. No cardiac complaints. - Objective Allergies/Adverse Reactions: Allergies Allergy/AdvReac Type Severity Reaction Status Date / Time No Known Allergies Allergy Verified 07/19/19 20:23 Visit Medications: Current Medications Acetaminophen (Tylenol) 650 mg PO Q4H PRN PRN Reason: Headache/Fever/Mild Pain (1-3) Last Admin: 07/20/19 10:21 Dose: 650 mg Hydrocodone Bitart/Acetaminophen ([place] 5/325) 1 tab PO Q4H PRN PRN Reason: Moderate to Severe Pain (6-10) Last Admin: 07/20/19 11:59 Dose: 1 tab Albuterol Sulfate (Proventil Hfa) 2 puff INH Q6H PRN PRN Reason: Wheezing Amiodarone HCl (Cordarone) 200 mg PO DAILY [facility] Last Admin: 07/22/19 09:15 Dose: 200 mg Artificial Tears (Tears Naturale) 2 drop EA EYE PRN PRN PRN Reason: Dry Eyes Aspirin (Aspirin Chewable) 81 mg PO DAILY [facility] Last Admin: 07/22/19 09:15 Dose: 81 mg Atorvastatin Calcium (Lipitor) 40 mg PO HS [facility] Last Admin: 07/21/19 20:39 Dose: 40 mg Bisacodyl (Dulcolax) 10 mg [place] DAILYPRN PRN PRN Reason: Constipation Calcium Carbonate (Tums) 1,000 mg PO Q4H PRN PRN Reason: Heartburn or Indigestion Carvedilol (Coreg) 3.125 mg PO BID [facility] Last Admin: 07/22/19 09:15 Dose: 3.125 mg Cyanocobalamin (Vitamin B-12) 1,000 mcg PO DAILY [facility] Last Admin: 07/22/19 09:15 Dose: 1,000 mcg Famotidine (Pepcid) 20 mg PO DAILY [facility] Last Admin: 07/22/19 09:15 Dose: 20 mg Folic Acid (Folvite) 1 mg PO DAILY [facility] Last Admin: 07/22/19 09:15 Dose: 1 mg Furosemide (Lasix) 40 mg SLOW IVP 0600,1400 [facility] Last Admin: 07/22/19 06:34 Dose: 40 mg Guaifenesin (Robitussin Sf) 200 mg PO Q4H PRN PRN Reason: Cough Guaifenesin/Dextromethorphan (Robitussin Dm) 15 ml PO Q4H PRN PRN Reason: Cough Hydralazine HCl (Apresoline) 10 mg SLOW IVP Q4H PRN PRN Reason: SBP > 180 and HR < 70 Levetiracetam (Keppra) 500 mg PO BID [facility] Last Admin: 07/22/19 09:14 Dose: 500 mg Lisinopril (Zestril) 2.5 mg PO DAILY [facility] Last Admin: 07/22/19 09:14 Dose: 2.5 mg Loperamide HCl (Imodium) 2 mg PO PRN PRN PRN Reason: Diarrhea/Loose Stools Loratadine (Claritin) 10 mg PO DAILYPRN PRN PRN Reason: Sinus Symptoms Nitroglycerin (Nitrostat) 0.4 mg SL Q5MIN PRN PRN Reason: Chest Pain Ondansetron HCl (Zofran Odt) 4 mg PO Q6H PRN PRN Reason: Nausea/Vomiting Ondansetron HCl (Zofran) 4 mg IVP Q6H PRN PRN Reason: Nausea/Vomiting Potassium Chloride (K-Dur) 40 meq PO Q4H [facility] Stop: 07/22/19 14:16 Last Admin: 07/22/19 11:40 Dose: 40 meq Senna/Docusate Sodium (Senokot S) 2 tab PO BIDPRN PRN PRN Reason: Constipation Sodium Chloride ([place] Nasal [place] 0.65%) 0 ml EA NARE QIDPRN PRN PRN Reason: Nasal Congestion Throat Lozenges (Cepastat Lozenges) 1 wanda PO Q2H PRN PRN Reason: Sore Throat Vital Signs & Weight: Vital Signs Temp Pulse Resp BP BP Pulse Ox 07/22/19 11:12 97.5 F L 60 16 106/56 L 100 07/22/19 09:14 60 07/22/19 07:18 97.4 F L 60 16 119/63 99 07/22/19 06:58 98 07/22/19 03:42 97.6 F 61 16 134/79 98 Admit Weight 175 lb 4.28 oz Weight 169 lb 12.8 oz - Physical Exam General: other (confused) Neck: supple neck Cardiac: regular rate and rhythm Lungs: decreased breath sounds - Labs Result Diagrams: 07/20/19 05:01 07/22/19 04:51 Troponin/CKMB CK-MB (CK-2) 2.2 ng/mL (0-6.6) 07/19/19 12:55 Troponin I 0.043 ng/mL (< 0.028) H 07/19/19 21:10 - Telemetry Sinus rhythms and dysrhythmias: other (AV paced) - Assessment/Plan Assessment/Plan: 1. Acute on chronic systolic HF exc with EF 15-20% in 07/2019 - The pt stated he does not have any SOB this AM; 1+ pitting BLE edema; 2LNC; On Coreg, Lisinopril, and Lasix 40mg IV BID; he has been hospitalized every month for CHF exc. 2. 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 CAD with hx of CABG - on Coreg, lisinopril, ASA, and lipitor 4. HTN - stable with current meds 5. CKD - unchanged 6. HLD - on Statin 7. Seizure on Keppra 8. Hx VT with s/p EP study in 04/[address] Whitlock at [employer]- on Amiodarone 200mg QD. On ASA 81mg qd for now 2/2 hx of fall and dementia; TSH > 10; Request EP consult (Dr Whitlock) 9. "smoking formation" in [place] - cont. ASA 81mg qd for now due to 2/2 hx of fall and dementia MAR reviewed * Echo on 07/20/2019 with EF 15-0%, "smoke formation" mod-severe LAE, mild-mod MR, and mild AR Pt. seen and eval. by me. He is a little more alert today but confused. He denies SOB or CP. The records from & were reviewed. He has a long history of CMY/CHF. The defibrillator was orinially a dual chamber device which was placed due to CMY and CHBlock. It was later upgraded to a bi-v device after the EF continued to decrease and he was pacing essentially all the time. he was recently in [facility] hospital in apr., for about 10 days with CHF exacerbation. He was sent to assisted living but apparently decompensated. if this is his mental baseline he will probably need to go to [place] for future care. He seems to be diuresing and I would continue the present meds. We could also add spiralactone to his regimine if the renal function allows. osvaldo
--- NOTE | 2019-07-22 19:06 | PDOC.HOSPP ---
- Subjective Encounter Date: 07/22/19 Encounter Time: 08:00 Subjective: no overnight events. This morning, feels well and requests to leave. Educated him regarding amiodarone and its effect on the thyroid and my intention to request cardiology to assess. Willing to stay. - Objective Vital Signs & Weight: Vital Signs (12 hours) Temp Pulse Resp BP BP Pulse Ox 07/22/19 15:22 96.7 F L 61 16 121/63 98 07/22/19 11:12 97.5 F L 60 16 106/56 L 100 07/22/19 09:14 60 07/22/19 07:18 97.4 F L 60 16 119/63 99 Weight Admit Weight 175 lb 4.28 oz Weight 169 lb 12.8 oz I&O: 07/21/19 07/22/19 07/23/19 06:59 06:59 06:59 Intake Total 700 480 720 Output Total 150 200 Balance 550 480 520 Result Diagrams: 07/20/19 05:01 07/22/19 04:51 Hospitalist ROS - Review of Systems Constitutional: denies: fever, chills, sweats, weakness, malaise, other Respiratory: denies: cough, dry, shortness of breath, hemoptysis, SOB with excertion, pleuritic pain, sputum, wheezing, other Cardiovascular: denies: chest pain, palpitations, orthopnea, paroxysmal noc. dyspnea, edema, light headedness, other Gastrointestinal: denies: nausea, vomiting, abdominal pain, diarrhea, constipation, melena, hematochezia, other Genitourinary: denies: dysuria, frequency, incontinence, hematuria, retention, other - Medication Medications: Active Medications Generic Name Dose Route Start Last Admin Trade Name Freq PRN Reason Stop Dose Admin Acetaminophen 650 mg 07/19/19 17:24 07/20/19 10:21 Tylenol PO 650 mg Q4H PRN Administration Headache/Fever/Mild Pain (1-3) Hydrocodone Bitart/Acetaminophen 1 tab 07/20/19 11:05 07/20/19 11:59 [place] 5/325 PO 1 tab Q4H PRN Administration Moderate to Severe Pain (6-10) Amiodarone HCl 200 mg 07/20/19 09:00 07/22/19 09:15 Cordarone PO 200 mg DAILY LISA Administration Aspirin 81 mg 07/20/19 09:00 07/22/19 09:15 Aspirin Chewable PO 81 mg DAILY [facility]ISA Administration Atorvastatin Calcium 40 mg 07/19/19 21:00 07/21/19 20:39 Lipitor PO 40 mg HS LISA Administration Carvedilol 3.125 mg 07/19/19 21:00 07/22/19 09:15 Coreg PO 3.125 mg BID LISA Administration Cyanocobalamin 1,000 mcg 07/20/19 09:00 07/22/19 09:15 Vitamin B-12 PO 1,000 mcg DAILY LISA Administration Famotidine 20 mg 07/20/19 09:00 07/22/19 09:15 Pepcid PO 20 mg DAILY LISA Administration Folic Acid 1 mg 07/20/19 09:00 07/22/19 09:15 Folvite PO 1 mg DAILY [facility]ISA Administration Furosemide 40 mg 07/20/19 06:00 07/22/19 14:11 Lasix SLOW IVP 40 mg 0600,1400 LISA Administration Levetiracetam 500 mg 07/19/19 21:00 07/22/19 09:14 Keppra PO 500 mg BID LISA Administration Lisinopril 2.5 mg 07/20/19 09:00 07/22/19 09:14 Zestril PO 2.5 mg DAILY LISA Administration - Exam General Appearance: NAD, awake alert Heart: RRR, no murmur, no gallops, no rubs Respiratory: no wheezes, no rales, no ronchi, rales (b/l mostly lower [place], improved) Gastrointestinal: soft, non-tender, non-distended, normal bowel sounds Extremities: 2+ LE edema Hosp A/P - Plan (1) decompensated CHFrEF (congestive heart failure) Code(s): I50.9 - HEART FAILURE, UNSPECIFIED Status: Acute Per nursing, many wet diapers; requested to place condom or purewick for accurate I/O 2. subclinical hypothyroidism - requested cardiology to evaluate lowering dosage or cessation of amiodarone (4) Hx of CABG Status: Acute (5) AICD (automatic cardioverter/defibrillator) present Code(s): Z95.810 - PRESENCE OF AUTOMATIC (IMPLANTABLE) CARDIAC DEFIBRILLATOR Status: Acute (8) Seizure Code(s): R56.9 - UNSPECIFIED CONVULSIONS Status: Acute (9) Sacral decubitus ulcer Code(s): L89.159 - PRESSURE ULCER OF SACRAL REGION, UNSPECIFIED STAGE Status: Acute
[2019-07-22] MEDS: Atorvastatin Calcium 40 MG TAB PO SCH (21:52)
--- NOTE | 2019-07-22 23:54 | PDOC.EVN ---
Event Note - Event Note Event Note: Notified by RN, patient with intermittent blood tinged urine/blood clots. Per day team, strict I/O. Unable to obtain much urine via purewick, and no condom catheter available. Wu catheter to be placed, will also send UA/UCx (previous UCx on 06/23 + pseudomonas). Continue to monitor for hematuria. Day team to consider Urology Consult if hematuria persists and deemed necessary.
[2019-07-23 01:01] LABS: Bacteria/HPF None Seen HPF (None Seen); Bilirubin Negative (Negative); Blood, Urine 3+ (Negative); Clarity Clear (Clear); Glucose, Urine (Dipstick) Normal (Negative); Leukocyte Negative Leu/uL (Negative); Nitrite Negative (Negative); Protein, Urine (Dipstick) Negative (Neg-Trace); RBC/HPF 21-50 HPF (0-3); Squamous Epithelial 0-3 HPF (0-3); Urine Culture Reflex Yes Yes; Urobilinogen 3 mg/dL (Less than 2); WBC/HPF 21-50 HPF (0-3)
[2019-07-23] MEDS: Furosemide 40 MG/4 ML VIAL SLOW IVP SCH (05:20)
[2019-07-23 05:40] LABS: Band 4 % (5-11); Eosinophils 1 % (0-10); Hemoglobin 11.7 g/dL (14.0-18.0); Lymphocytes 13 % (21-51); MDiff Complete? YES; Mean Corpuscular HGB CONC 30.8 g/dL (32.0-36.0); Mean Corpuscular Hemoglobin 33.8 pg (27.0-31.0); Mean Platelet Volume 9.8 fL (7.4-10.4); Monocytes 13 % (0-10); Neutrophil 69 % (42-75); Platelet Count 48 thou/uL (130-400); Platelet Morphology Comment Appears Decreased; RBC Distribution Width 16.1 % (11.5-14.5); Red Blood Cell (RBC) Count 3.46 mill/uL (4.70-6.10); White Blood Cell (WBC) Count 5.2 thou/uL (4.8-10.8)
[2019-07-23 05:44] LABS: Anion Gap 13 mmol/L (10-20); BUN (Urea Nitrogen) 34 mg/dL (8.4-25.7); Calc. Creatinine Clearance 38 mL/min (70-130); Calcium 7.9 mg/dL (7.8-10.44); Carbon Dioxide 32 mmol/L (23-31); Chloride 103 mmol/L (98-107); Estimated GFR-MDRD 42; Glucose 105 mg/dL (83-110); Magnesium 2.1 mg/dL (1.6-2.6); Sodium 144 mmol/L (136-145)
--- NOTE | 2019-07-23 06:01 | CON ---
DATE OF CONSULTATION: 07/22/2019 PRIMARY CARE PHYSICIAN: Kelsi Shipley MD PRIMARY PRE SALES NETWORK ENGINEER: Lamin Woodruff D.O. REFERRING PRE SALES NETWORK ENGINEER: Raymundo Horner MD REASON FOR CONSULTATION: TRANSPORTATION ATTENDANT-D, paroxysmal atrial fibrillation. CHIEF COMPLAINT: Dyspnea. HISTORY OF PRESENT ILLNESS: Mr. Narayanan is an 84-year-old white male with a history of chronic systolic heart failure and coronary artery disease, paroxysmal atrial fibrillation, syncope, complete heart block, and TRANSPORTATION ATTENDANT-D. Initially had dual-chamber ICD insertion in April 2019 at [facility] by Dr. Fermin Hooks. I upgraded him to a [employer] MRI conditional TRANSPORTATION ATTENDANT-D in June 2019. He does not have a history of ventricular tachycardia. His initial presentation was in April 2019 with syncope and he was found to have complete heart block. He was admitted with chronic dyspnea, which was moderate in intensity, worsened with exertion, relieved with rest. His BNP was markedly elevated. He has been treated with intravenous diuretics. He is noted to have a TSH of 10 and a free T3 of 1.0. He is on amiodarone for his paroxysmal atrial fibrillation. He is not a candidate for flecainide due to his cardiomyopathy and not a candidate for sotalol or Tikosyn due to his chronic kidney disease. In addition, he has a history of seizure disorder and is not on anticoagulation. Echocardiogram, 07/20/2019; moderate to severely dilated left atrium, ejection fraction 15% to 20%, [id number] mitral regurgitation. PAST MEDICAL HISTORY: 1. Dementia. 2. Stage 3 chronic kidney disease. 3. Bladder outlet obstruction. 4. Chronic systolic heart failure. 5. Coronary artery disease. 6. [employer] MRI conditional TRANSPORTATION ATTENDANT-D. 7. Seizure disorder. 8. Complete heart block. 9. Hypertension. 10. Hematuria. 11. Thrombocytopenia. PAST SURGICAL HISTORY: 1. CABG. 2. TRANSPORTATION ATTENDANT-D as above. 3. PICC line. ALLERGIES: PENICILLIN. FAMILY HISTORY: Positive for heart disease in his mother and father. SOCIAL HISTORY: He was in an assisted living facility on admission. Previously, he was living alone in [place]. He is single with no children. He has a niece in [place], but does not know how to contact her. REVIEW OF SYSTEMS: Negative for fever or chills, recent seizure or syncope. All others negative. PHYSICAL EXAMINATION: GENERAL: Alert and oriented x4. Lying flat. VITAL SIGNS: Temperature 97.4, pulse 60, respiratory rate 12, oxygen saturation 99% on 2 L nasal cannula, and blood pressure 119/63. HEENT: No lesions. Sclerae clear. SKIN: Well-healed incision site over his TRANSPORTATION ATTENDANT-D. CARDIOVASCULAR: Regular rate and rhythm. No murmurs, gallops, or rubs. LUNGS: Clear to auscultation bilaterally. Normal respiratory effort. EXTREMITIES: No cyanosis, clubbing, or edema. LABORATORY DATA: EKG, AV paced. Sodium 141, potassium 4.1, BUN 37, creatinine 1.7, and glucose 92. AST 24 and ALT 25. TSH elevated at 10.6. Free T3 low at 1.0. WBC 5.0, hemoglobin 12.2, and platelets 102. IMPRESSION AND PLAN: 1. Acute exacerbation of chronic systolic heart failure. 2. TRANSPORTATION ATTENDANT-D with normal function. It was interrogated this admission by the [employer] door to door sales representative. 3. Paroxysmal atrial fibrillation, on amiodarone, not a candidate for anticoagulation due to his seizure disorder. 4. Hypothyroidism. 5. Coronary artery disease with ischemic cardiomyopathy. RECOMMENDATIONS: 1. Thyroid replacement. 2. Continue amiodarone at 200 mg daily. 3. We would not initiate anticoagulation given the above comorbidities. 4. He does not have a history of ventricular tachycardia. Job ID: [id number]
[2019-07-23] MEDS: Lisinopril 2.5 MG TAB PO SCH (09:12)
[2019-07-23] MEDS: Amiodarone 200 MG TAB PO SCH (09:12)
[2019-07-23] MEDS: Aspirin Chewable 81 MG TAB PO SCH (09:12)
[2019-07-23] MEDS: levETIRAcetam 500 MG TAB PO SCH ×2 (09:12→20:51)
[2019-07-23] MEDS: Carvedilol 3.125 MG TAB PO SCH ×2 (09:12→20:51)
[2019-07-23] MEDS: Famotidine 20 MG TAB PO SCH (09:12)
[2019-07-23] MEDS: Folic Acid 1 MG TAB PO SCH (09:12)
[2019-07-23] MEDS: Cyanocobalamin (Vitamin B-12) 1,000 MCG TAB PO SCH (09:12)
[2019-07-23] MEDS: Acetaminophen 325 MG TAB PO PRN (09:17)
[2019-07-23] MEDS ORDERED: Levothyroxine Sodium 50 MCG TAB PO SCH (10:00)
[2019-07-23] MEDS ORDERED: Iopamidol 370 76% 100 ML VIAL ONE (10:22)
--- NOTE | 2019-07-23 13:01 | EKG ---
Test Reason : Blood Pressure : / mmHG Vent. Rate : 060 BPM Atrial Rate : 059 BPM P-R Int : 000 ms QRS Dur : 164 ms QT Int : 530 ms P-R-T Axes : 000 -21 109 degrees QTc Int : 530 ms AV dual-paced rhythm Abnormal ECG Confirmed by SABRINA NEVAREZ DO ([id number]), scientific editor AKIRA BOBBY ([id number]) on 07/23/2019 1:01:15 PM Referred By: Confirmed By:SABRINA NEVAREZ DO
--- NOTE | 2019-07-23 19:49 | PDOC.HOSPP ---
- Subjective Encounter Date: 07/23/19 Encounter Time: 10:00 Subjective: overnight, clots and blood-tinged urine reported, magaña placed. This morning complains of being chained (SCDs). Magaña bag shows clear urine, blood in meatus. Later in PM, reported blot in catheter and red urine in tubing. Will obtain CT w/ and w/o contrast. - Objective Vital Signs & Weight: Vital Signs (12 hours) Temp Pulse Resp BP BP Pulse Ox 07/23/19 15:18 97.7 F 63 16 133/73 100 07/23/19 12:05 97.2 F L 60 18 135/81 99 07/23/19 09:50 20 98 07/23/19 09:12 61 153/73 H 07/23/19 08:01 99 Weight Admit Weight 175 lb 4.28 oz Weight 164 lb 9.6 oz I&O: 07/22/19 07/23/19 07/24/19 06:59 06:59 06:59 Intake Total 480 870 720 Output Total 900 900 Balance 480 -30 -180 Result Diagrams: 07/23/19 05:17 07/23/19 05:17 Hospitalist ROS - Review of Systems Constitutional: denies: fever, chills, sweats, weakness, malaise, other Respiratory: denies: cough, dry, shortness of breath, hemoptysis, SOB with excertion, pleuritic pain, sputum, wheezing, other Cardiovascular: denies: chest pain, palpitations, orthopnea, paroxysmal noc. dyspnea, edema, light headedness, other Gastrointestinal: denies: nausea, vomiting, abdominal pain, diarrhea, constipation, melena, hematochezia, other Genitourinary: reports: hematuria. denies: dysuria, frequency, incontinence, retention, other - Medication Medications: Active Medications Generic Name Dose Route Start Last Admin Trade Name Freq PRN Reason Stop Dose Admin Acetaminophen 650 mg 07/19/19 17:24 07/23/19 09:17 Tylenol PO 650 mg Q4H PRN Administration Headache/Fever/Mild Pain (1-3) Hydrocodone Bitart/Acetaminophen 1 tab 07/20/19 11:05 07/20/19 11:59 [place] 5/325 PO 1 tab Q4H PRN Administration Moderate to Severe Pain (6-10) Amiodarone HCl 200 mg 05/13/20 09:00 07/23/19 09:12 Cordarone PO 200 mg DAILY LISA Administration Aspirin 81 mg 07/20/19 09:00 07/23/19 09:12 Aspirin Chewable PO 81 mg DAILY LISA Administration Atorvastatin Calcium 40 mg 07/19/19 21:00 07/22/19 21:52 Lipitor PO 40 mg HS LISA Administration Carvedilol 3.125 mg 07/19/19 21:00 07/23/19 09:12 Coreg PO 3.125 mg BID LISA Administration Cyanocobalamin 1,000 mcg 07/20/19 09:00 07/23/19 09:12 Vitamin B-12 PO 1,000 mcg DAILY LISA Administration Famotidine 20 mg 07/20/19 09:00 07/23/19 09:12 Pepcid PO Not Given DAILY LISA Folic Acid 1 mg 07/20/19 09:00 07/23/19 09:12 Folvite PO 1 mg DAILY LISA Administration Levetiracetam 500 mg 07/19/19 21:00 07/23/19 09:12 Keppra PO 500 mg BID LISA Administration Lisinopril 2.5 mg 07/20/19 09:00 07/23/19 09:12 Zestril PO 2.5 mg DAILY LISA Administration - Exam General Appearance: NAD, awake alert Neck: no JVD Heart: RRR, no murmur, no gallops Respiratory: CTAB, no wheezes, no rales, no ronchi Gastrointestinal: soft, non-tender, non-distended, normal bowel sounds Extremities: 2+ LE edema Psychiatric: normal affect, normal behavior, A&O x 3 Hosp A/P - Plan (1) decompensated CHFrEF (congestive heart failure) Code(s): I50.9 - HEART FAILURE, UNSPECIFIED Status: Acute Per nursing, many wet diapers; requested to place condom or purewick for accurate I/O breathing and satting well on 2L NC, lung exam unremarkable, worsening contraction alkalosis; will deescalate diuresis 2. Gross hematuria - episodic; conitnued after placing magaña; will obtain CT pelvis w/ and w/o contrast 3. subclinical hypothyroidism - per cardiology, continue amiodarone and treat hypothyroidism; subclinical but TSH > 10; started low dose based on weight due to age and history of CAD
[2019-07-23] MEDS: Atorvastatin Calcium 40 MG TAB PO SCH (20:51)
--- NOTE | 2019-07-23 21:13 | CT ---
CT ABDOMEN AND PELVIS WITHOUT AND WITH CONTRAST: 07/23/19 HISTORY: Gross hematuria. TECHNIQUE: Multiple contiguous axial images were obtained in a CT of the abdomen and pelvis without and with IV contrast. Postcontrast images were obtained in a nephrographic and excretory phases. Sagittal and cor onal reformats were performed. FINDINGS: There is irregular thickening of the wall of the urinary bladder along the dome. There are foci of ai r within this thickened bladder wall. There may be a few diverticula in this location. There is calci fication in the left posterior aspect of the urinary bladder. This could be within the lumen of the b ladder or along the wall of the urinary bladder. No calcifications are seen in either kidney or ureter. No hydronephrosis is seen. No suspicious renal mass is seen. The liver, gallbladder, adrenal glands, spleen, and pancreas are unremarkable. There is a small amount of free fluid in the abdomen. Diffuse soft tissue anasarca is seen. Scattered diverticula are seen in the colon. The small bowel is unremarkable. Atherosclerotic calcifications a re seen in the aorta. No abdominal or pelvic lymphadenopathy are seen. There is a moderate right and small left pleural effusion with adjacent atelectasis. Degenerative nedra nges are seen in the spine. The heart is enlarged and leads from a triple lead pacemaker are partiall y visualized. IMPRESSION: 1. Abnormality within the urinary bladder may be secondary to cystitis. Air within the urinary b ladder wall in this location suggests emphysematous cystitis unless recent catheterization has been p erformed. 2. Calcifications in the left aspect of the posterior urinary bladder versus calcification of t he wall of the urinary bladder. 3. Diverticulosis. 4. Small ascites. 5. Bilateral pleural effusions with adjacent atelectasis. POS: EAA
[2019-07-24] MEDS: Levothyroxine Sodium 50 MCG TAB PO SCH (03:29)
[2019-07-24 05:11] LABS: Anion Gap 13 mmol/L (10-20); BUN (Urea Nitrogen) 29 mg/dL (8.4-25.7); Calc. Creatinine Clearance 39 mL/min (70-130); Calcium 8.7 mg/dL (7.8-10.44); Carbon Dioxide 31 mmol/L (23-31); Chloride 101 mmol/L (98-107); Estimated GFR-MDRD 47; Glucose 85 mg/dL (83-110); Potassium 3.8 mmol/L (3.5-5.1); Sodium 141 mmol/L (136-145)
[2019-07-24] MEDS: Spironolactone 25 MG TAB PO SCH (08:58)
[2019-07-24] MEDS: Famotidine 20 MG TAB PO SCH (08:59)
[2019-07-24] MEDS: Cyanocobalamin (Vitamin B-12) 1,000 MCG TAB PO SCH (08:59)
[2019-07-24] MEDS: Amiodarone 200 MG TAB PO SCH (08:59)
[2019-07-24] MEDS: Aspirin Chewable 81 MG TAB PO SCH (08:59)
[2019-07-24] MEDS: Carvedilol 3.125 MG TAB PO SCH ×2 (08:59→20:44)
[2019-07-24] MEDS: Folic Acid 1 MG TAB PO SCH (08:59)
[2019-07-24] MEDS: Furosemide 40 MG TAB PO SCH (09:00)
[2019-07-24] MEDS: levETIRAcetam 500 MG TAB PO SCH ×2 (09:00→20:44)
[2019-07-24] MEDS: Lisinopril 2.5 MG TAB PO SCH ×2 (09:00→20:43)
--- NOTE | 2019-07-24 11:07 | PDOC.HOSPP ---
- Subjective Encounter Date: 07/24/19 Encounter Time: 08:00 Subjective: no overnight events. No additional episodes of hematuria. feels well and has no complaints. Niece at bedside, updated regarding management - Objective Vital Signs & Weight: Vital Signs (12 hours) Temp Pulse Resp BP BP Pulse Ox 07/24/19 09:00 60 07/24/19 07:45 96 07/24/19 07:25 98.4 F 60 16 140/82 96 07/24/19 03:05 98.3 F 60 15 138/72 96 Weight Admit Weight 175 lb 4.28 oz Weight 152 lb 14.4 oz I&O: 07/23/19 07/24/19 07/25/19 06:59 06:59 06:59 Intake Total 870 820 Output Total 900 900 Balance -30 -80 Result Diagrams: 07/23/19 05:17 07/24/19 04:35 Hospitalist ROS - Review of Systems Constitutional: denies: fever, chills, sweats, weakness, malaise, other Respiratory: denies: cough, dry, shortness of breath, hemoptysis, SOB with excertion, pleuritic pain, sputum, wheezing, other Cardiovascular: denies: chest pain, palpitations, orthopnea, paroxysmal noc. dyspnea, edema, light headedness, other Gastrointestinal: denies: nausea, vomiting, abdominal pain, diarrhea, constipation, melena, hematochezia, other Genitourinary: denies: hematuria - Medication Medications: Active Medications Generic Name Dose Route Start Last Admin Trade Name Freq PRN Reason Stop Dose Admin Acetaminophen 650 mg 07/19/19 17:24 07/23/19 09:17 Tylenol PO 650 mg Q4H PRN Administration Headache/Fever/Mild Pain (1-3) Hydrocodone Bitart/Acetaminophen 1 tab 07/20/19 11:05 07/20/19 11:59 [place] 5/325 PO 1 tab Q4H PRN Administration Moderate to Severe Pain (6-10) Amiodarone HCl 200 mg 07/20/19 09:00 07/24/19 08:59 Cordarone PO 200 mg DAILY LISA Administration Aspirin 81 mg 07/20/19 09:00 07/24/19 08:59 Aspirin Chewable PO 81 mg DAILY LISA Administration Atorvastatin Calcium 40 mg 07/19/19 21:00 07/23/19 20:51 Lipitor PO 40 mg HS LISA Administration Carvedilol 3.125 mg 07/19/19 21:00 07/24/19 08:59 Coreg PO 3.125 mg BID LISA Administration Cyanocobalamin 1,000 mcg 07/20/19 09:00 07/24/19 08:59 Vitamin B-12 PO 1,000 mcg DAILY LISA Administration Famotidine 20 mg 07/20/19 09:00 07/24/19 08:59 Pepcid PO Not Given DAILY LISA Folic Acid 1 mg 07/20/19 09:00 07/24/19 08:59 Folvite PO 1 mg DAILY LISA Administration Furosemide 40 mg 07/24/19 09:00 07/24/19 09:00 Lasix PO 40 mg DAILY LISA Administration Levetiracetam 500 mg 07/19/19 21:00 07/24/19 09:00 Keppra PO 500 mg BID LISA Administration Levothyroxine Sodium 50 mcg 07/24/19 06:00 07/24/19 03:29 Synthroid PO 50 mcg 0600 LISA Administration Spironolactone 25 mg 07/24/19 08:00 07/24/19 08:58 Aldactone PO 25 mg QAM-WM LISA Administration - Exam General Appearance: NAD, awake alert Heart: RRR, no murmur, no gallops, no rubs, normal peripheral pulses Respiratory: CTAB, no wheezes, no rales, no ronchi, normal chest expansion, no tachypnea, normal percussion Gastrointestinal: soft, non-tender, non-distended, normal bowel sounds, no palpable masses, no hepatomegaly, no splenomegaly, no bruit Extremities: 2+ LE edema Extremities - other findings: improving Psychiatric: normal affect, normal behavior, A&O x 3 Hosp A/P - Plan (1) decompensated CHFrEF (congestive heart failure) Code(s): I50.9 - HEART FAILURE, UNSPECIFIED Status: Acute Breathing and satting well, lung exam benign; lower extremity edema improving; per cardiology started lisinopril and spironolactone 2. Gross hematuria - episodic; conitnued after placing magaña; will obtain CT pelvis w/ and w/o contrast 3. subclinical hypothyroidism - per cardiology, continue amiodarone and treat hypothyroidism; subclinical but TSH > 10; started low dose based on weight due to age and history of CAD
[2019-07-24] MEDS: Atorvastatin Calcium 40 MG TAB PO SCH (20:43)
[2019-07-24] MEDS: Acetaminophen 325 MG TAB PO PRN (20:46)
[2019-07-25 04:41] VITALS: BMI 22.3
[2019-07-25] MEDS: Levothyroxine Sodium 50 MCG TAB PO SCH (05:52)
[2019-07-25] MEDS: Spironolactone 25 MG TAB PO SCH (08:11)
[2019-07-25] MEDS: Famotidine 20 MG TAB PO SCH (08:12)
[2019-07-25] MEDS: Carvedilol 3.125 MG TAB PO SCH ×2 (08:12→20:49)
[2019-07-25] MEDS: Cyanocobalamin (Vitamin B-12) 1,000 MCG TAB PO SCH (08:12)
[2019-07-25] MEDS: Folic Acid 1 MG TAB PO SCH (08:12)
[2019-07-25] MEDS: Amiodarone 200 MG TAB PO SCH (08:12)
[2019-07-25] MEDS: Aspirin Chewable 81 MG TAB PO SCH (08:12)
[2019-07-25] MEDS: levETIRAcetam 500 MG TAB PO SCH ×2 (08:13→20:50)
[2019-07-25] MEDS: Lisinopril 2.5 MG TAB PO SCH ×2 (08:13→20:50)
[2019-07-25] MEDS: Furosemide 40 MG TAB PO SCH (08:13)
[2019-07-25] MEDS: Acetaminophen 325 MG TAB PO PRN (10:55)
--- NOTE | 2019-07-25 12:15 | PDOC.CPN ---
- Subjective Date: 07/25/19 Time: 08:00 Interval history: The pt seen and examined. No overnight events. No cardiac complaints. - Objective Allergies/Adverse Reactions: Allergies Allergy/AdvReac Type Severity Reaction Status Date / Time No Known Allergies Allergy Verified 07/19/19 20:23 Visit Medications: Current Medications Acetaminophen (Tylenol) 650 mg PO Q4H PRN PRN Reason: Headache/Fever/Mild Pain (1-3) Last Admin: 07/25/19 10:55 Dose: 650 mg Hydrocodone Bitart/Acetaminophen ([place] 5/325) 1 tab PO Q4H PRN PRN Reason: Moderate to Severe Pain (6-10) Last Admin: 07/20/19 11:59 Dose: 1 tab Albuterol Sulfate (Proventil Hfa) 2 puff INH Q6H PRN PRN Reason: Wheezing Amiodarone HCl (Cordarone) 200 mg PO DAILY [facility] Last Admin: 07/25/19 08:12 Dose: 200 mg Artificial Tears (Tears Naturale) 2 drop EA EYE PRN PRN PRN Reason: Dry Eyes Aspirin (Aspirin Chewable) 81 mg PO DAILY [facility] Last Admin: 07/25/19 08:12 Dose: 81 mg Atorvastatin Calcium (Lipitor) 40 mg PO HS [facility] Last Admin: 07/24/19 20:43 Dose: 40 mg Bisacodyl (Dulcolax) 10 mg [place] DAILYPRN PRN PRN Reason: Constipation Calcium Carbonate (Tums) 1,000 mg PO Q4H PRN PRN Reason: Heartburn or Indigestion Carvedilol (Coreg) 3.125 mg PO BID [facility] Last Admin: 07/25/19 08:12 Dose: 3.125 mg Cyanocobalamin (Vitamin B-12) 1,000 mcg PO DAILY [facility] Last Admin: 07/25/19 08:12 Dose: 1,000 mcg Famotidine (Pepcid) 20 mg PO DAILY [facility] Last Admin: 07/25/19 08:12 Dose: 20 mg Folic Acid (Folvite) 1 mg PO DAILY [facility] Last Admin: 07/25/19 08:12 Dose: 1 mg Furosemide (Lasix) 40 mg PO DAILY [facility] Last Admin: 07/25/19 08:13 Dose: 40 mg Guaifenesin (Robitussin Sf) 200 mg PO Q4H PRN PRN Reason: Cough Guaifenesin/Dextromethorphan (Robitussin Dm) 15 ml PO Q4H PRN PRN Reason: Cough Hydralazine HCl (Apresoline) 10 mg SLOW IVP Q4H PRN PRN Reason: SBP > 180 and HR < 70 Levetiracetam (Keppra) 500 mg PO BID [facility] Last Admin: 07/25/19 08:13 Dose: 500 mg Levothyroxine Sodium (Synthroid) 50 mcg PO 0600 [facility] Last Admin: 07/25/19 05:52 Dose: 50 mcg Lisinopril (Zestril) 2.5 mg PO BID [facility] Last Admin: 07/25/19 08:13 Dose: 2.5 mg Loperamide HCl (Imodium) 2 mg PO PRN PRN PRN Reason: Diarrhea/Loose Stools Loratadine (Claritin) 10 mg PO DAILYPRN PRN PRN Reason: Sinus Symptoms Nitroglycerin (Nitrostat) 0.4 mg SL Q5MIN PRN PRN Reason: Chest Pain Ondansetron HCl (Zofran Odt) 4 mg PO Q6H PRN PRN Reason: Nausea/Vomiting Ondansetron HCl (Zofran) 4 mg IVP Q6H PRN PRN Reason: Nausea/Vomiting Senna/Docusate Sodium (Senokot S) 2 tab PO BIDPRN PRN PRN Reason: Constipation Last Admin: 07/25/19 08:13 Dose: 2 tab Sodium Chloride (Norco Nasal [place] 0.65%) 0 ml EA NARE QIDPRN PRN PRN Reason: Nasal Congestion Spironolactone (Aldactone) 25 mg PO [facility] Last Admin: 07/25/19 08:11 Dose: 25 mg Throat Lozenges (Cepastat Lozenges) 1 wanda PO Q2H PRN PRN Reason: Sore Throat Vital Signs & Weight: Vital Signs Temp Pulse Resp BP BP Pulse Ox 07/25/19 11:35 97.3 F L 60 16 141/77 H 92 L 07/25/19 07:41 97.8 F 60 20 121/69 92 L 07/25/19 03:00 98.6 F 76 17 132/73 92 L Admit Weight 175 lb 4.28 oz Weight 150 lb 14.4 oz - Physical Exam General: other (confused) HEENT: mucus membranes moist Neck: supple neck Cardiac: regular rate and rhythm Lungs: decreased breath sounds Neuro: cranial nerve 2-12 intact - Labs Result Diagrams: 07/23/19 05:17 07/26/19 05:32 Troponin/CKMB CK-MB (CK-2) 2.2 ng/mL (0-6.6) 07/19/19 12:55 Troponin I 0.043 ng/mL (< 0.028) H 07/19/19 21:10 - Telemetry Sinus rhythms and dysrhythmias: other (AV paced) - Assessment/Plan Assessment/Plan: 1. Acute on chronic systolic HF exc with EF 15-20% in 07/2019 - stable with RA ; no BLE edema; On Coreg, Lisinopril, Lasix 40mg PO qd, and spironolactone 25mg qd; he has been hospitalized every month for CHF exc. 2. 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 CAD with hx of CABG - on Coreg, lisinopril, ASA, and lipitor 4. HTN - stable with current meds 5. CKD - unchanged 6. HLD - on Statin 7. Seizure on Keppra 8. Parox Afib with s/p EP study in 04/[address] Whitlock at [facility] - on Amiodarone 200mg QD. On ASA 81mg qd for now 2/2 hx of fall and dementia; TSH > 10; 9. "smoking formation" in [place] - cont. ASA 81mg qd for now due to 2/2 hx of fall and dementia 10. Hypothyroidism - Levothyroxine was started MAR reviewed * Echo on 07/20/2019 with EF 15-20%, "smoke formation" mod-severe LAE, mild-mod MR, and mild AR Pt. seen and eval. by me. i agree with the A/p by the [employer] PROC[employer]OR. he is better than last week. his CHF has improved as well as the renal function. He has a long history of CHF. He continues to have nonhealing sacral and left heel ulcerations. His only c/o is of sacral pain at the sacral decubitus. He seems to be tolerating the ROSIBEL-I and aldactone at this time. Will follow renal function carefully. He may need further eval. in the future to see if he has progression of his CAD or graft failure as an etiology of the CMY. I do not have any documentation of a recent cardiac cath. He will likely need NH placement on d/c. osvaldo
--- NOTE | 2019-07-25 16:09 | PDOC.PALCO ---
Palliative Care Consult - Consult Details Requesting Physician: Christina MECHANICAL INTEGRITY ENGINEER / COnfirmed with Dr Tubbs Reason for Consult: goals of care, advance directives assistance, assistance with communication prognosis/disease - Allergies Allergies/Adverse Reactions: Allergies Allergy/AdvReac Type Severity Reaction Status Date / Time No Known Allergies Allergy Verified 07/19/19 20:23 - Objective Vital Signs: Vital Signs - Most Recent Temp Pulse Resp BP Pulse Ox 97.6 F 60 20 119/64 92 L 07/25/19 15:00 07/25/19 15:00 07/25/19 15:00 07/25/19 15:07/25/19 15:00 - Plan/Recommendations Plan: Palliative Care spoke with patient and [facility]. Obtained documents from [facility] and placed on Chart. Live review with patient, he states originally from [place]. Appears fatigued and intermittent poor memory recall. Initial discussion in relation to disease process, decline and disease trajectory. Follow up meeting 07/26/2019 at 11am to address specific Goal of care in relation multiple morbidities/recent and recurrent hospital admissions related to cardiac decline/and quality of life. Communicated with Dr Tubbs Please also refer to Barbara Sparrow RNanimal scientist notes in note section. [50] minutes spent on this encounter with >50% of the time in counseling and coordination of care. Thank you for this very appropriate consult.
[2019-07-25] MEDS: Atorvastatin Calcium 40 MG TAB PO SCH (20:50)
--- NOTE | 2019-07-25 22:53 | PDOC.HOSPP ---
- Subjective Encounter Date: 07/25/19 Encounter Time: 09:00 Subjective: no overnight events. THis morning, feeling well and has no complaints. No overnight hematuria - Objective Vital Signs & Weight: Vital Signs (12 hours) Temp Pulse Pulse Pulse Resp BP BP 07/25/19 20:50 62 143/86 H 07/25/19 20:00 07/25/19 19:40 97.4 F L 62 17 07/25/19 15:00 97.6 F 60 20 07/25/19 11:55 62 60 140/87 07/25/19 11:35 97.3 F L 60 16 BP BP BP Pulse Ox 07/25/19 20:50 07/25/19 20:00 92 L 07/25/19 19:40 143/86 H 92 L 07/25/19 15:00 119/64 92 L 07/25/19 11:55 142/78 H 07/25/19 11:35 141/77 H 92 L Weight Admit Weight 175 lb 4.28 oz Weight 150 lb 14.4 oz I&O: 07/24/19 07/25/19 07/26/19 06:59 06:59 06:59 Intake Total 820 800 720 Output Total 900 50 Balance -80 750 720 Result Diagrams: 07/23/19 05:17 07/24/19 04:35 Hospitalist ROS - Review of Systems Constitutional: denies: fever, chills, sweats, weakness, malaise, other Respiratory: denies: cough, dry, shortness of breath, hemoptysis, SOB with excertion, pleuritic pain, sputum, wheezing, other Cardiovascular: denies: chest pain, palpitations, orthopnea, paroxysmal noc. dyspnea, edema, light headedness, other Gastrointestinal: denies: nausea, vomiting, abdominal pain, diarrhea, constipation, melena, hematochezia, other - Medication Medications: Active Medications Generic Name Dose Route Start Last Admin Trade Name Freq PRN Reason Stop Dose Admin Acetaminophen 650 mg 07/19/19 17:24 07/25/19 10:55 Tylenol PO 650 mg Q4H PRN Administration Headache/Fever/Mild Pain (1-3) Hydrocodone Bitart/Acetaminophen 1 tab 07/20/19 11:05 07/20/19 11:59 [place] 5/325 PO 1 tab Q4H PRN Administration Moderate to Severe Pain (6-10) Amiodarone HCl 200 mg 07/20/19 09:00 07/25/19 08:12 Cordarone PO 200 mg DAILY LISA Administration Aspirin 81 mg 07/20/19 09:00 07/25/19 08:12 Aspirin Chewable PO 81 mg DAILY LISA Administration Atorvastatin Calcium 40 mg 07/19/19 21:00 07/25/19 20:50 Lipitor PO 40 mg HS LISA Administration Carvedilol 3.125 mg 07/19/19 21:00 07/25/19 20:49 Coreg PO 3.125 mg BID LISA Administration Cyanocobalamin 1,000 mcg 07/20/19 09:00 07/25/19 08:12 Vitamin B-12 PO 1,000 mcg DAILY LISA Administration Famotidine 20 mg 07/20/19 09:00 07/25/19 08:12 Pepcid PO 20 mg DAILY LISA Administration Folic Acid 1 mg 07/20/19 09:00 07/25/19 08:12 Folvite PO 1 mg DAILY LISA Administration Furosemide 40 mg 07/24/19 09:00 07/25/19 08:13 Lasix PO 40 mg DAILY LISA Administration Levetiracetam 500 mg 07/19/19 21:00 07/25/19 20:50 Keppra PO 500 mg BID LISA Administration Levothyroxine Sodium 50 mcg 07/24/19 06:00 07/25/19 05:52 Synthroid PO 50 mcg 0600 LISA Administration Lisinopril 2.5 mg 07/24/19 21:00 07/25/19 20:50 Zestril PO 2.5 mg BID LISA Administration Senna/Docusate Sodium 2 tab 07/19/19 17:24 07/25/19 08:13 Senokot S PO 2 tab BIDPRN PRN Administration Constipation Spironolactone 25 mg 07/24/19 08:00 07/25/19 08:11 Aldactone PO 25 mg QAM-WM LISA Administration - Exam General Appearance: NAD, awake alert Neck: no JVD Heart: RRR, no murmur, no gallops, no rubs Respiratory: CTAB, no wheezes, no rales, no ronchi Extremities: 1+ LE edema Extremities - other findings: improved lower extremity edema Psychiatric: normal affect, normal behavior, A&O x 3 Hosp A/P - Plan (1) decompensated CHFrEF (congestive heart failure) Code(s): I50.9 - HEART FAILURE, UNSPECIFIED Status: Acute Breathing and satting well, lung exam benign; lower extremity edema improving; per cardiology started lisinopril and spironolactone, well tolerated so far 2. Gross hematuria - episodic; conitnued after placing magaña; CT shows bladder wall calcification; pending Urology evaluation 3. subclinical hypothyroidism - per cardiology, continue amiodarone and treat hypothyroidism; subclinical but TSH > 10; started low dose based on weight due to age and history of CAD
[2019-07-25] MEDS ORDERED: Bisacodyl 10 MG SUPP PR PRN (23:02)
[2019-07-25] MEDS ORDERED: Melatonin 3 MG TAB PO SCH (23:30)
--- NOTE | 2019-07-26 00:24 | CON ---
DATE OF CONSULTATION: 07/25/2019 REASON FOR CONSULTATION: Gross hematuria. REQUESTING PHYSICIAN: Dr. Luis A Tubbs. HISTORY OF PRESENT ILLNESS: Mr. Narayanan is an 84-year-old male with history of BPH and gross hematuria. The patient was initially seen by me earlier this year for the same. The patient was seen at [facility] as an inpatient consult initially actually by Dr. Santos. From there the patient was transferred to [facility] for 24-hour EEG monitoring. During that time, he developed significant hematuria. He followed up with me afterward, last seen on May 05, 2019. It is unclear why he followed up with me and not Dr. Santos; however, he was scheduled for an outpatient cystoscopy. Given the COVID-19 pandemic, this procedure was rescheduled as he has been in a nursing facility and was quarantined. The patient has actually been in and out of the hospital at [facility] and at [facility] since that time. Most recently, he is admitted for CHF exacerbation. He developed gross hematuria during this hospitalization. A Wu catheter was placed and his hematuria cleared. This was subsequently removed. He intermittently had small amounts of hematuria; however, now he is voiding into a Depend and is not having any gross hematuria. He denies any dysuria. No abdominal or flank pain. He currently has no other complaints. CT scan obtained demonstrates an enlarged prostate with some bladder wall thickening and calcification along the floor of the bladder. Urology was consulted for evaluation of this. REVIEW OF SYSTEMS: Full 12-point review of systems was performed and the patient denies everything. The reliability of this is questionable given his cognitive status. PAST MEDICAL HISTORY: Congestive heart failure, seizure disorder, coronary artery disease, benign prostatic hypertrophy, dyslipidemia. PAST SURGICAL HISTORY: CABG and AICD/pacemaker placement. SOCIAL HISTORY: He was transferred from a nursing facility where he currently resides. No history of alcohol, tobacco, or illicit drugs. FAMILY HISTORY: Noncontributory. ALLERGIES: NO KNOWN DRUG ALLERGIES. CURRENT HOME MEDICATIONS: Amiodarone, aspirin, Lasix, potassium chloride, Coreg, Keppra, Lipitor. PHYSICAL EXAMINATION: VITAL SIGNS: Temperature 97.6, pulse 60, respirations 18, ox saturation 92% on room air, blood pressure 119/64. GENERAL: He is alert and oriented x3. No apparent distress. HEENT: Normocephalic, atraumatic. NECK: Supple. No masses or lymphadenopathy. CARDIOVASCULAR: Regular rate and rhythm. PULMONARY: Breathing unlabored. ABDOMEN: Soft, nontender/nondistended. No masses or organomegaly. No suprapubic tenderness to palpation. No CVA tenderness. EXTREMITIES: Mild bilateral lower extremity edema. NEUROLOGIC: No focal deficits. LABORATORY DATA: Hemoglobin 11.7, hematocrit 37.9, platelets 48. Urine culture no growth at 36 hours. Sodium 141, potassium 3.8, chloride 101, bicarb 31, BUN 29, creatinine 1.45. RADIOLOGY DATA: CT of the abdomen and pelvis on 07/23/2019 demonstrated bladder wall thickening, air within the urinary bladder likely secondary to catheterization. There are also calcifications in the left aspect of the posterior urinary bladder. There was some ascites noted as well. ASSESSMENT: An 84-year-old male with multiple acute and chronic medical problems as listed above, now with gross hematuria, benign prostatic hypertrophy and bladder stones versus calcification of the bladder wall. PLAN: I reviewed the patient's condition with him and his clinical course to date. He was scheduled for outpatient cystoscopy for evaluation of ongoing hematuria. This never happened secondary to the COVID crisis. The patient's clinical status has deteriorated since then. He is currently urinating and is not having any bothersome symptoms. It will still be recommended that he have an outpatient cystoscopy performed; however, he would not likely be a good candidate for any type of significant surgical intervention depending on the findings of this. He will be scheduled for outpatient followup with Urology. Job ID: [id number]
[2019-07-26] MEDS ORDERED: traZODone HCl 50 MG TAB PO SCH (01:30)
[2019-07-26] MEDS: Levothyroxine Sodium 50 MCG TAB PO SCH (06:10)
[2019-07-26 06:30] LABS: Anion Gap 13 mmol/L (10-20); BUN (Urea Nitrogen) 33 mg/dL (8.4-25.7); Calc. Creatinine Clearance 34 mL/min (70-130); Calcium 8.3 mg/dL (7.8-10.44); Carbon Dioxide 31 mmol/L (23-31); Chloride 101 mmol/L (98-107); Estimated GFR-MDRD 41; Glucose 108 mg/dL (83-110); Magnesium 2.3 mg/dL (1.6-2.6); Potassium 3.7 mmol/L (3.5-5.1); Sodium 141 mmol/L (136-145)
[2019-07-26] MEDS: Acetaminophen 325 MG TAB PO PRN (06:35)
[2019-07-26 07:22] VITALS: TEMP 97.6
[2019-07-26] MEDS: Spironolactone 25 MG TAB PO SCH (08:39)
[2019-07-26] MEDS: levETIRAcetam 500 MG TAB PO SCH (08:39)
[2019-07-26] MEDS: Lisinopril 2.5 MG TAB PO SCH (08:39)
[2019-07-26] MEDS: Carvedilol 3.125 MG TAB PO SCH (08:39)
[2019-07-26] MEDS: Aspirin Chewable 81 MG TAB PO SCH (08:39)
[2019-07-26] MEDS: Famotidine 20 MG TAB PO SCH (08:39)
[2019-07-26] MEDS: Amiodarone 200 MG TAB PO SCH (08:39)
[2019-07-26] MEDS: Furosemide 40 MG TAB PO SCH (08:39)
[2019-07-26] MEDS: Folic Acid 1 MG TAB PO SCH (08:40)
[2019-07-26] MEDS: Cyanocobalamin (Vitamin B-12) 1,000 MCG TAB PO SCH (08:40)
[2019-07-26] MEDS: HYDROcodone/Acetaminophen 5/325 mg Tablet PO PRN (09:03)
--- NOTE | 2019-07-26 11:31 | PDOC.PALPN ---
Palliative Progress Note - Subjective Awake, alert. Taty WOOD, at bedside. Difficulty repositioning secondary to weakness. Complains of discomfort to coccyx secondary to limited mobility. - Objective Vital Signs: Vital Signs - Most Recent Temp Pulse Resp BP Pulse Ox 97.6 F 60 18 144/81 H 99 07/26/19 07:10 07/26/19 07:10 07/26/19 07:10 07/26/19 07:10 07/26/19 08:40 - Physical Exam Constitutional: ill appearing HEENT: EOMI, moist MMs, sclera anicteric Respiratory: no wheezing, diminished lung sound Cardiovascular: RRR, diminished peripheral pulses Gastrointestinal: continent, soft, non-tender, positive bowel sounds Musculoskeletal: edema present, diffuse muscle atrophy Neurology: moves all 4 limbs, no focal deficits Skin: cap refill <2 seconds, fragile Psychiatric: A&O x 3, flat affect - Plan Plan: Visited with patient and MPOA at length. Discussed disease progression of heart failure, paired with goal of care. To be discharged to [facility] today. Both patient and ISRAEL Posey expressed to remain with full resuscitation measures , and if he is intubated then he would not want to "stay on machines for very long". Provided information in relation to disease trajectory and multiple hospitalizations, that they appear to be increasing in frequency related to exacerbation of heart failure. Discussed Goal of Care and Mr Narayanan and Taty relayed that they "Just want to go to [facility] and figure out things from there ". Discussed that in the future if hospitalizations continue related to frequent exacerbations consideration for Hospice may be a consideration to manage symptoms related to terminal condition and promote optimal end of life. Total assist for ADL with the exception of eating, Taty and patient confirm increase in falls (non while in the hospital) [30] minutes spent on this encounter with >50% of the time in counseling and coordination of care. - ROS Constitutional: alert, weakness ENT: other (denies throat irritation, difficulity swallowing) Respiratory: other (Denies shortness of breath, cough) Cardiology: other (Denies chest pain, palpitations) Gastrointestinal: other (denies constiaption, nausea) Musculoskeletal: other (pain to coccyx secondary to limited mobility)
--- NOTE | 2019-07-26 11:49 | PDOC.FMACP ---
Advance Care Planning - Note Participants: patient, surrogate decision-maker, palliative care Summary: Advanced Care Planning was discussed. The diagnosis, prognosis and goals of care were discussed. Appropriate forms and documentation to accomplish the goals of care were discussed. All questions were answered. The Palliative Care Team will be engaged to assist with completion of any outstanding forms that are needed. Discussed resuscitation status Mr Narayanan expressed he wishes to remain with full resuscitation measures including intubation. Mr Narayanan states that if he required intubation he would not desire to remain on mechanical ventilation for any lengthy period of time. "I do not want machines to keep me alive". Continues to wish to seek aggressive measures to treat multiple morbidities. Transition to [facility] as he currently requires assistance for all ADL with the exception of feeding himself. ISRAEL Posey, confirmed documentation. Barbara Sparrow RNlinter saw sharpener has also discussed Goal of Care and disease trajectory with patient and ISRAEL Posey at length. Please refer to her notes in note section. Time Spent (mins): 30
[2019-07-26 12:17] VITALS: BP 142/80
--- NOTE | 2019-07-26 16:17 | PDOC.CPN ---
- Subjective Date: 07/26/19 Time: 08:00 Interval history: The pt seen and examined. No overnight events. No cardiac complaints. - Objective Allergies/Adverse Reactions: Allergies Allergy/AdvReac Type Severity Reaction Status Date / Time No Known Allergies Allergy Verified 07/19/19 20:23 Vital Signs & Weight: Vital Signs Temp Pulse Resp BP Pulse Ox 07/26/19 11:46 97.6 F 61 20 142/80 H 98 07/26/19 08:40 99 07/26/19 07:10 97.6 F 60 18 144/81 H 99 Admit Weight 175 lb 4.28 oz Weight 150 lb 3.2 oz - Physical Exam General: alert & oriented x3 HEENT: mucus membranes moist Neck: supple neck Cardiac: regular rate and rhythm, S1/S2 Lungs: clear to auscultation Extremities: no edema - Labs Result Diagrams: 07/23/19 05:17 07/26/19 05:32 Troponin/CKMB CK-MB (CK-2) 2.2 ng/mL (0-6.6) 07/19/19 12:55 Troponin I 0.043 ng/mL (< 0.028) H 07/19/19 21:10 - Telemetry Sinus rhythms and dysrhythmias: other (AV paced) - Assessment/Plan Assessment/Plan: 1. Acute on chronic systolic HF exc with EF 15-20% in 07/2019 - stable with RA ; no BLE edema with SCDs; On Coreg, Lisinopril, Lasix 40mg PO qd, and spironolactone 25mg qd; he has been hospitalized every month for CHF exc. 2. 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 CAD with hx of CABG - on Coreg, lisinopril, ASA, and lipitor 4. HTN - stable with current meds 5. CKD - unchanged 6. HLD - on Statin 7. Seizure on Keppra 8. Parox Afib with s/p EP study in 04/[address] Whitlock at [facility] - on Amiodarone 200mg QD. On ASA 81mg qd for now 2/2 hx of fall and dementia; TSH > 10; 9. "smoking formation" in [place] - cont. ASA 81mg qd for now due to 2/2 hx of fall and dementia 10. Hypothyroidism - Levothyroxine was started MAR reviewed * Echo on 07/20/2019 with EF 15-20%, "smoke formation" mod-severe LAE, mild-mod MR, and mild AR * The pt will tx to [facility] today; the pt will f/u with Assistant Press Operator at [facility].
--- NOTE | 2019-07-27 13:35 | DIS ---
DATE OF ADMISSION: 07/19/2019 DATE OF DISCHARGE: 07/26/2019 HOSPITAL COURSE: Mr. Narayanan is an 84-year-old male with a medical history of CHF with reduced ejection fraction, coronary artery disease, status post CABG, AICD placement, [facility] breath and hypoxemia. He was found to be saturating in the 60s to 70s in the [facility], and upon arrival to the ED, oxygenation immediately improved to 91% on 2 L nasal cannula. He was diagnosed with decompensated heart failure. Cardiology was consulted and optimized his medications. Echocardiogram showed an ejection fraction of 15% to 20%. Per Cardiology, the palliative care team was consulted and discussed goals of care with the patient and his MPOA. Decision was suggested to remain in full code. However, if he was mechanically ventilated, he did not wish to remain ventilated for long. The patient promptly improved after diuresis and optimization of his hospital medications and on the day of discharge, was saturating at 98% on room air with a respiratory rate of 20. He was discharged to the [facility]. DISCHARGE MEDICATIONS: New medications: 1. Nitroglycerin 0.4 mg q.5 minutes sublingual as needed for chest pain. 2. Amiodarone 200 mg daily. 3. Aspirin 81 mg daily. 4. Atorvastatin 40 mg at bedtime. 5. Bisacodyl 10 mg q.8 hours p.r.n. constipation. 6. Calcium carbonate 1000 mg q.4 hours p.r.n. heartburn or indigestion. 7. Coreg 3.125 mg b.i.d. 8. Lasix 40 mg daily. 9. Keppra 500 mg b.i.d. 10. Levothyroxine 50 mcg oral q.a.m. (was recommended by Cardiology considering his subclinical hypothyroidism, which might be due to amiodarone). 11. Lisinopril 2.5 mg p.o. b.i.d. 12. Sennosides-docusate or Senokot two tabs b.i.d. 13. Spironolactone 25 mg q.a.m. The above-mentioned medications are the only medications that the patient should take. Discontinued medications: Lasix 40 mg b.i.d.. Job ID: [id number]
--- NOTE | 2019-07-28 05:57 | PQF ---
LENNY CARTHUY, LINDA [id number] [id number] CLINICAL DOCUMENTATION CLARIFICATION FORM: POST DISCHARGE Addendum to original discharge summary date: ____ Late entry note date: __ DATE: 07/28/19 ATTN:Linda Tubbs Please exercise your independent, professional judgment in responding to the clarification form. Clinical indicators are provided on the bottom of this form for your review Can you please further clarify the diagnosis of the patient? Please check appropriate box(s): [ x ] Demand Ischemia with Type 2 ID [ ] Demand Ischemia without Type 2 ID [ ] Other diagnosis please specify [ ] Unable to determine In addition, please specify: Present on Admission (POA): [ x ] Yes [ ] No [ ] Unable to determine CLINICAL INDICATORS - SIGNS / SYMPTOMS / LABS H and P pg.3- demand ischemia of myocardium due to CHF exacerbation H and P pg.1- troponin was indeterminate range with 0.031 and BNP was significantly elevated H and P pg.3- demand ischemia of myocardium Electrocardiogram- Abnormal ECG Laboratory- Troponin I-0.031H, 0.037H, 0.043H RISKS: Acute respiratory failure- H and P pg.3 Acute on chronic systolic CHF CKD3- H and P pg.3 Dyslipidemia- H and P pg.3 CAD- H and P pg.1 TREATMENTS: Chest X ray 07/18 Electrocardiogram 07/18 Echocardiogram 07/[address] Horner Nitroglycerin ointment- MAY Aspirin 81mg PO- MAR IV Fluids- MAY (This form is maintained as a part of the permanent medical record) 2014 [employer]. All Rights Reserved Jesus [email or web address]
== END 2019-07-26 14:53 | DRG 280 ==
LOC: ERS 11:49 → 2SW 14:25 → OBSVTOIN 14:26 → 2SW 14:34 → UNDOADMOB 14:34
PROVIDERS: ADMIT Internal Medicine; ATTEND Internal Medicine
PROC: 0T9B70Z Drainage of Bladder with Drainage Device, Via Natural or Artificial Opening (ICD-10-PCS; principal; 2019-07-23)
DX: I13.0 Hypertensive heart and chronic kidney disease with heart failure and stage 1 through stage 4 chronic kidney disease, or unspecified chronic kidney disease (principal); I50.23 Acute on chronic systolic (congestive) heart failure; I21.A1 Myocardial infarction type 2; J96.01 Acute respiratory failure with hypoxia; L89.153 Pressure ulcer of sacral region, stage 3; Z51.5 Encounter for palliative care; Z20.828 Contact with and (suspected) exposure to other viral communicable diseases; G40.909 Epilepsy, unspecified, not intractable, without status epilepticus; D69.6 Thrombocytopenia, unspecified; D75.89 Other specified diseases of blood and blood-forming organs; N18.3 Chronic kidney disease, stage 3 (moderate); I25.10 Atherosclerotic heart disease of native coronary artery without angina pectoris; E78.5 Hyperlipidemia, unspecified; D53.9 Nutritional anemia, unspecified; D63.1 Anemia in chronic kidney disease; E78.00 Pure hypercholesterolemia, unspecified; I25.5 Ischemic cardiomyopathy; I48.0 Paroxysmal atrial fibrillation; E02 Subclinical iodine-deficiency hypothyroidism; R31.0 Gross hematuria; Z79.82 Long term (current) use of aspirin; Z79.899 Other long term (current) drug therapy; Z95.810 Presence of automatic (implantable) cardiac defibrillator; Z95.1 Presence of aortocoronary bypass graft
CPT/HCPCS: 36415; 71045; 74178; 80048; 80053; 81001; 82550; 82553; 82607; 82746; 83735; 83880; 84439; 84443; 84481; 84484; 84550; 85025; 87086; 87635; 93005; 93306; 93798; 96374; J1940; Q9967; U0003

== ENCOUNTER 2019-08-11 07:37 | Emergency (ER) | payer MEDICARE, BC ==
--- NOTE | 2019-08-11 09:05 | CT ---
CT HEAD WITHOUT CONTRAST: INDICATION: Fall with head injury. FINDINGS: There is mild cortical atrophy. Mild chronic ischemic white matter change. No evidence of acute int racranial hemorrhage. There are very coarse dystrophic benign-appearing calcifications seen in the left cerebral cortex. T wo are seen in the subcortical region of the left frontal lobe that is periventricular. A smaller co arse calcification is seen in the superior right cerebral hemisphere which appears cortical in the re gion of the posterior frontal lobe near the central gyrus. Paranasal sinuses are clear. The opacification of the left mastoid air cells of uncertain significance. There is a scalp hematoma over the left frontal bone. No evidence of skull fracture. There is evidence of mildly displaced nasal bone fractures and probable fracture of the nasal septum. IMPRESSION: 1. No evidence of acute intracranial process. There are chronic intracranial findings as described. 2. Nasal bone fractures with probable fracture of the nasal septum. 3. Scalp hematoma of the left frontal bone. POS: AGW
[2019-08-11] MEDS ORDERED: Lidocaine 1% w/Epinephrine 1:100K 20 ML VIAL ONE (09:30)
--- NOTE | 2019-08-11 10:02 | CT ---
CERVICAL SPINE CT WITHOUT CONTRAST: DATE: 08/11/2019. COMPARISON: None. HISTORY: Fall, trauma, pain. TECHNIQUE: Axial CT imaging obtained at 2.5 mm intervals through the cervical spine with coronal and sagittal re formatted imaging. FINDINGS: The craniocervical junction and cervicothoracic junction appear intact. No prevertebral soft tissue swelling is seen. There is moderate degenerative change at the atlantoaxial interspace. There is pr ominent multilevel cervical spine facet hypertrophic change, right greater than left, most prominent at the C4-5 level. There is disk space narrowing with degenerative end plate change and anterior ost eophyte formation at C5-6 and C6-7. Minimal anterolisthesis measuring approximately 2 mm noted at C4-5, likely on the basis of facet hype rtrophic degenerative change. The C1 ring is intact. Occipital condyles and dens demonstrate no acute findings. Partially imaged lung apices demonstrate a pleural effusion on the right extending into the right shashank g apex. Recommend dedicated imaging of the chest. There is a transvenous pacing device partially im aged on this exam. There is scattered atherosclerotic calcification of the carotid system bilaterally in the region of t he distal CCA and proximal ICA, left greater than right. Nonspecific opacification of the mastoid air cells noted on the left. There is left-sided facet and uncovertebral osteophyte formation at C2-3. At C3-4, there is right-si ded facet and uncovertebral osteophyte formation. At C4-5, there is prominent right-sided facet and uncovertebral osteophyte. At C5-6, there is mild/moderate bilateral facet and uncovertebral osteophy te formation. No displaced fracture or dislocation seen. IMPRESSION: 1. Multilevel degenerative change within the cervical spine. No displaced fracture or dislocation n oted. 2. Nonspecific left mastoid effusion. 3. Right pleural effusion extending into the right lung apex for which dedicated chest imaging is lao ggested. POS: BEL
[2019-08-11] MEDS ORDERED: Bacitracin 1 PK ONE (10:05)
== END 2019-08-11 10:23 | disposition home or self-care (01) ==
LOC: ERS 07:37
DX: S01.81XA Laceration without foreign body of other part of head, initial encounter (principal); D69.6 Thrombocytopenia, unspecified; D50.9 Iron deficiency anemia, unspecified; E78.00 Pure hypercholesterolemia, unspecified; I13.0 Hypertensive heart and chronic kidney disease with heart failure and stage 1 through stage 4 chronic kidney disease, or unspecified chronic kidney disease; I50.9 Heart failure, unspecified; N18.3 Chronic kidney disease, stage 3 (moderate); I25.2 Old myocardial infarction; I25.10 Atherosclerotic heart disease of native coronary artery without angina pectoris; Z79.899 Other long term (current) drug therapy; Z79.891 Long term (current) use of opiate analgesic; Z79.82 Long term (current) use of aspirin; W18.09XA Striking against other object with subsequent fall, initial encounter
CPT/HCPCS: 12013; 70450; 72125